=== PATIENT | male | born 1945 | race Caucasian/White ===

== ENCOUNTER → 2016-04-29 | Outpatient (CLI) | payer MEDICARE | LOC: OD 12:13 | PROVIDERS: ATTEND Internal Medicine | DX: E03.9 Hypothyroidism, unspecified (principal) | CPT/HCPCS: 36415; 84443 ==

== ENCOUNTER → 2016-08-12 | Outpatient (CLI) | payer MEDICARE ==
[~2016-08-12] MED LIST: IRON SUCROSE COMPLEX 200 MG in NORMAL SALINE 100 ML IV PRN
== END ==
LOC: II 12:29
PROVIDERS: ATTEND Internal Medicine
PROC: 3E033GC Introduction of Other Therapeutic Substance into Peripheral Vein, Percutaneous Approach (ICD-10-PCS; principal; 2016-08-12)
DX: D50.9 Iron deficiency anemia, unspecified (principal); K90.9 Intestinal malabsorption, unspecified; D64.9 Anemia, unspecified
CPT/HCPCS: 96374; J1756

== ENCOUNTER 2016-08-19 12:26 | Outpatient (CLI) | payer MEDICARE ==
[2016-08-19 13:20] VITALS: BP 133/70
== END 2016-08-19 13:30 | disposition home or self-care (01) ==
LOC: II 12:26 → 5TH 12:30 → II 13:30
PROVIDERS: ATTEND Internal Medicine
PROC: 3E033GC Introduction of Other Therapeutic Substance into Peripheral Vein, Percutaneous Approach (ICD-10-PCS; principal; 2016-08-19)
DX: D50.9 Iron deficiency anemia, unspecified (principal); K90.9 Intestinal malabsorption, unspecified
CPT/HCPCS: 96365; J1756

== ENCOUNTER 2016-08-24 19:42 | Observation (INO) | payer MEDICARE ==
[2016-08-24] MEDS ORDERED: NORMAL SALINE 1000 ML 1,000 ML IV PRN (20:19)
[2016-08-24] MEDS ORDERED: DIPHENHYDRAMINE HCL 50 MG/ML VIAL IV PRN (20:27)
[2016-08-24] MEDS ORDERED: ACETAMINOPHEN 325 MG TABLET PO PRN (20:27)
[2016-08-25] MEDS ORDERED: LISINOPRIL 5 MG TABLET PO ONE (02:00)
[2016-08-25] MEDS ORDERED: AMLODIPINE BESYLATE 5 MG TABLET PO ONE (02:00)
[2016-08-25] MEDS ORDERED: LISINOPRIL 5 MG TABLET ONE (02:27)
[2016-08-25 06:30] LABS: HEMATOCRIT 30.6 % (37.9-51.0); HEMOGLOBIN 9.7 g/dL (13.5-17.0); HGB HCT DIFFERENCE -1.5; MEAN CORPUSCULAR HEMOGLOBIN 26.9 pg (27.0-33.4); MEAN CORPUSCULAR HGB CONC 31.6 g/dL (32.0-36.0); MEAN CORPUSCULAR VOLUME 85 fl (80-97); RED CELL DISTRIBUTION WIDTH 20.7 % (11.5-14.0); WHITE BLOOD COUNT 5.1 10^3/uL (4.0-10.5)
[2016-08-25] MEDS ORDERED: NA PHOS,M-B/NA PHOS,DI-BA (ADULT) 133 ML ENEMA PR ONE (09:00)
[2016-08-25] MEDS ORDERED: GLYCOPYRROLATE INJ 0.4 MG/2 ML VIAL ONE (09:15)
[2016-08-25] MEDS ORDERED: ONDANSETRON HCL INJ/PF 4 MG/2 ML SDV ONE (09:15)
[2016-08-25] MEDS ORDERED: NALOXONE HCL INJ/PF 0.4 MG/1 ML SDV ONE (09:15)
[2016-08-25] MEDS ORDERED: LIDOCAINE 2% JELLY 30 ML TUBE ONE (09:15)
[2016-08-25] MEDS ORDERED: FENTANYL CITRATE INJ/PF 100 MCG/2 ML AMPUL ONE (09:16)
[2016-08-25] MEDS ORDERED: GLUCAGON,HUMAN RECOMB 1 MG INJ ONE (09:16)
[2016-08-25] MEDS ORDERED: FLUMAZENIL INJ 0.5 MG/5 ML VIAL IV ONE (09:16)
[2016-08-25] MEDS ORDERED: EPINEPHRINE INJ 1 MG/10 ML DISP.SYRIN ONE (09:16)
[2016-08-25] MEDS: MIDAZOLAM 2 MG/2 ML INJ ONE ×2 (10:15→10:23)
--- NOTE | 2016-08-25 11:23 | OPERATIVE REPORT E ---
Operative Report NAME: SUKUMAR ARMENDARIZ : 1945 AGE: 70Y DATE OF SURGERY: 08/24/2016 ROOM: 208 PREOPERATIVE DIAGNOSIS: The patient is a 70-year-old male with anemia. POSTOPERATIVE DIAGNOSES: 1. Anemia. 2. Abdominal pain. 3. Diverticulosis, sigmoid, descending colon. OPERATION: Colonoscopy. SURGEON: DEVYN PETTY M.D. ANESTHESIA: Versed 2, fentanyl 50. TISSUE REMOVED OR ALTERED: None. PROCEDURE: RECTAL EXAM: Normal sigmoid, descending colon, diverticulosis. Large amount of brown solid stool. Transverse colon, again, normal. No polyps, no active bleeding. Ascending colon shows large amount of solid brown stool. Cecum dilated. There is no active bleeding. No polyps, no malignancy. Scope withdrawn from cecum, ascending, transverse, descending, sigmoid, all the way to the rectum. CONCLUSION: 1. Diverticulosis. 2. Inadequate prep. 3. No active bleeding. PLAN: 1. Patient to be discharged. 2. Soft, low-residual diet. 3. Consideration for outpatient elective upper endoscopy. DICTATING PHYSICIAN: DEVYN PETTY M.D. [id number] PHY#: [id number] ID: [id number] JOB#: [id number] ACCT: [id number] cc:Kadie NELSON M.D. >
[2016-08-25 12:01] VITALS: BP 127/77
[2016-08-25 13:33] LABS: ABSOLUTE BASOPHILS # (AUTO) 0.1 10^3/uL (0.0-0.2); ABSOLUTE EOSINOPHILS # (AUTO) 0.6 10^3/uL (0.0-0.6); ABSOLUTE LYMPHOCYTES (AUTO) 1.4 10^3/uL (0.5-4.7); ABSOLUTE MONOCYTES (AUTO) 0.4 10^3/uL (0.1-1.4); ABSOLUTE NEUT (AUTO) 4.7 10^3/uL (1.7-8.2); BASOPHILS % (AUTO) 1.8 % (0-2); EOSINOPHILS % (AUTO) 8.1 % (0-6); HEMATOCRIT 29.9 % (37.9-51.0); HEMOGLOBIN 9.7 g/dL (13.5-17.0); HGB HCT DIFFERENCE -0.8; LYMPHOCYTES % (AUTO) 19.7 % (13-45); MEAN CORPUSCULAR HEMOGLOBIN 27.3 pg (27.0-33.4); MEAN CORPUSCULAR HGB CONC 32.5 g/dL (32.0-36.0); MEAN CORPUSCULAR VOLUME 84 fl (80-97); MONOCYTES % (AUTO) 5.1 % (3-13); RED BLOOD COUNT 3.56 10^6/uL (4.35-5.55); RED CELL DISTRIBUTION WIDTH 21.1 % (11.5-14.0); SEGMENTED NEUTROPHILS % (AUTO) 65.3 % (42-78); WHITE BLOOD COUNT 7.2 10^3/uL (4.0-10.5)
[2016-08-25 14:03] LABS: IRON 28.5 ug/dL (49-181)
[2016-08-25 14:22] LABS: FERRITIN 76.2 ng/mL (17.9-464.0)
--- NOTE | 2016-08-27 07:23 | DISCHARGE SUMMARY E ---
Discharge Summary NAME: SUKUMAR ARMENDARIZ : 1945 AGE: 70Y ADMITTED: 08/24/2016 DISCHARGED: 08/25/2016 HOSPITAL COURSE: The patient is 70 years old and underwent observation admission for anemia. His hemoglobin was 8. He was transfused 1 unit of packed cells overnight and now his hemoglobin is 9.5. He underwent colonoscopy today which was completed, but the patient has a large amount of brown solid stool. We did reach the cecum but I did not see any polyps or active bleeding. DISCHARGE PLAN: 1. The patient will see us as an outpatient and consider upper endoscopy elective. 2. The patient to have another H and H prior to discharge. 1. Soft low residue. 3. Start on full liquid diet. 4. We will see him as an outpatient for further treatment and evaluation. DICTATING PHYSICIAN: DEVYN PETTY M.D. [id number] PHY#: [id number] ID: [id number] JOB#: [id number] ACCT: [id number] cc:ACE YORK M.D., MAHMOUD M.D. >
== END 2016-08-25 14:00 | disposition home or self-care (01) ==
LOC: 2N 19:42
PROVIDERS: ADMIT Specialist; ATTEND Specialist
PROC: 0DJD8ZZ Inspection of Lower Intestinal Tract, Via Natural or Artificial Opening Endoscopic (ICD-10-PCS; principal; 2016-08-24)
PROC: 30243N1 Transfusion of Nonautologous Red Blood Cells into Central Vein, Percutaneous Approach (ICD-10-PCS; 2016-08-24)
DX: D50.9 Iron deficiency anemia, unspecified (principal); K57.30 Diverticulosis of large intestine without perforation or abscess without bleeding; R10.9 Unspecified abdominal pain; G20 Parkinson's disease; K21.9 Gastro-esophageal reflux disease without esophagitis; Z79.899 Other long term (current) drug therapy; Z98.890 Other specified postprocedural states; Z86.010 Personal history of colon polyps; Z87.19 Personal history of other diseases of the digestive system
CPT/HCPCS: 45378; 86900; 86901; 36415 ×2; 36430; 86850; 82607; 82728; 83540; 85025 ×2; 85027; 86920; G0378 ×2; G0379; P9016; A9270 ×3; J2250; J1200; J3010; J1610; J2405; J7030; J0171; J2310; J3490

== ENCOUNTER → 2016-08-24 | Outpatient (CLI) | payer MEDICARE ==
[2016-08-24 10:11] LABS: ABSOLUTE BASOPHILS # (AUTO) 0.2 10^3/uL (0.0-0.2); ABSOLUTE EOSINOPHILS # (AUTO) 0.7 10^3/uL (0.0-0.6); ABSOLUTE MONOCYTES (AUTO) 0.4 10^3/uL (0.1-1.4); ABSOLUTE NEUT (AUTO) 2.2 10^3/uL (1.7-8.2); EOSINOPHILS % (AUTO) 12.4 % (0-6); HEMATOCRIT 25.6 % (37.9-51.0); HGB HCT DIFFERENCE -1.6; LYMPHOCYTES % (AUTO) 36.7 % (13-45); MEAN CORPUSCULAR HEMOGLOBIN 26.3 pg (27.0-33.4); MEAN CORPUSCULAR HGB CONC 31.4 g/dL (32.0-36.0); MEAN CORPUSCULAR VOLUME 84 fl (80-97); RED BLOOD COUNT 3.05 10^6/uL (4.35-5.55); RED CELL DISTRIBUTION WIDTH 21.8 % (11.5-14.0); SEGMENTED NEUTROPHILS % (AUTO) 39.9 % (42-78); WHITE BLOOD COUNT 5.4 10^3/uL (4.0-10.5)
== END ==
LOC: OD 09:21
PROVIDERS: ATTEND Specialist
DX: R10.9 Unspecified abdominal pain (principal); D50.9 Iron deficiency anemia, unspecified
CPT/HCPCS: 36415; 85025

== ENCOUNTER 2016-08-26 13:02 | Outpatient (CLI) | payer MEDICARE ==
[2016-08-26 14:24] VITALS: BP 151/87
== END 2016-08-26 15:12 | disposition home or self-care (01) ==
LOC: II 13:02 → 5TH 13:05 → II 15:12
PROVIDERS: ATTEND Internal Medicine
PROC: 3E033GC Introduction of Other Therapeutic Substance into Peripheral Vein, Percutaneous Approach (ICD-10-PCS; principal; 2016-08-26)
DX: D50.9 Iron deficiency anemia, unspecified (principal); K90.9 Intestinal malabsorption, unspecified
CPT/HCPCS: 96367; J1756; 96374

== ENCOUNTER 2016-09-02 13:04 | Outpatient (CLI) | payer MEDICARE ==
[2016-09-02 15:11] VITALS: BP 119/58
== END 2016-09-02 15:38 | disposition home or self-care (01) ==
LOC: II 13:04 → 5TH 13:07 → II 15:38
PROVIDERS: ATTEND Internal Medicine
PROC: 3E033GC Introduction of Other Therapeutic Substance into Peripheral Vein, Percutaneous Approach (ICD-10-PCS; principal; 2016-09-02)
DX: D50.9 Iron deficiency anemia, unspecified (principal); K90.9 Intestinal malabsorption, unspecified
CPT/HCPCS: 96365; J1756; 96367

== ENCOUNTER 2017-01-29 13:29 | Inpatient (IN) | payer MEDICARE, OTHER ==
[2017-01-29] MEDS ORDERED: AMPICILLIN SOD/SULBACTAM 3 GM VIAL IV ONE (13:55)
--- NOTE | 2017-01-29 13:58 | ER Document Report ---
ED General - General Chief Complaint: Altered Mental Status Stated Complaint: FEVER SWEATING CONFUSION Time Seen by Provider: 01/29/17 13:44 Mode of Arrival: Wheelchair Information source: Relative Cannot obtain history due to: Altered mental status Notes: 71 yr old male on multiple pain medications presents with concerns of altered mental status by . notes patient has been couhg, noted to satting 88% on RA upon arrival. Pt has been jittery shaking TRAVEL OUTSIDE OF THE [place] IN LAST 30 DAYS: No - HPI Onset: Yesterday Onset/Duration: Sudden Quality of pain: No pain Severity: Moderate Pain Level: Denies Associated symptoms: Nonproductive cough, Fever, Other Exacerbated by: Denies Relieved by: Denies Similar symptoms previously: Yes - previous aspiration Recently seen / treated by doctor: No - Related Data Allergies/Adverse Reactions: tramadol [Tramadol] Adverse Reaction (Intermediate, Verified 01/29/17 13:34) Generalized rash pregabalin [From Lyrica] Adverse Reaction (Verified 01/29/17 13:34) RASH Home Medications: Current Home Medications Amlodipine Besylate [Norvasc 5 mg Tablet] 5 mg PO DAILY 01/29/17 [History] Duloxetine HCl [Cymbalta 20 Mg Capsule.Dr] 60 mg PO Q12 01/29/17 [History] Gabapentin [Neurontin 300 mg Capsule] 300 mg PO Q8 01/29/17 [History] Lisinopril [Prinivil 5 mg Tablet] 5 mg PO DAILY 01/29/17 [History] Morphine Sulfate [Morphine Sulfate ER] 30 mg PO Q8 01/29/17 [History] Oxycodone HCl 20 mg PO Q4H 01/29/17 [History] Tamsulosin HCl [Flomax 0.4 mg Cap.sr] 0.4 mg PO DAILY 01/29/17 [History] Trazodone HCl [Desyrel] 100 mg PO QHS PRN 01/29/17 [History] Past Medical History - Social History Smoking Status: Current Every Day Smoker Cigarette use (# per day): Yes Chew tobacco use (# tins/day): No Smoking Education Provided: No Family History: Reviewed & Not Pertinent - Past Medical History Cardiac Medical History: Reports: Hx Hypertension Denies: Hx Coronary Artery Disease, Hx Heart Attack Pulmonary Medical History: Reports: Hx COPD, Hx Pneumonia Denies: Hx Asthma, Hx Bronchitis Neurological Medical History: Denies: Hx Cerebrovascular Accident, Hx Seizures Renal/ Medical History: Reports: Hx Renal Insufficiency GI Medical History: Reports: Hx Gastroesophageal Reflux Disease, Hx Hiatal Hernia - REPAIR. Denies: Hx Hepatitis, Hx Ulcer Musculoskeltal Medical History: Reports Hx Arthritis, Reports Hx Fibromyalgia Psychiatric Medical History: Reports: Hx Depression, Hx Post Traumatic Stress Disorder Infectious Medical History: Denies: Hx Hepatitis Past Surgical History: Denies: Hx Open Heart Surgery, Hx Pacemaker - Immunizations Hx Diphtheria, Pertussis, Tetanus Vaccination: Yes Hx Pneumococcal Vaccination: 02/28/15 Review of Systems - Review of Systems Notes: PHYSICAL EXAMINATION: GENERAL: Ill-appearing male somnolent HEAD: Atraumatic, normocephalic. EYES: Pupils equal round and reactive to light, extraocular movements intact, sclera anicteric, conjunctiva are normal. ENT: Nares patent, oropharynx clear without exudates. Moist mucous membranes. NECK: Normal range of motion, supple without lymphadenopathy LUNGS: Coarse rhonchi inspiratory and expiratory HEART: Tachycardic ABDOMEN: Soft, nontender, nondistended abdomen. No guarding, no rebound. No masses appreciated. Musculoskeletal: Normal range of motion, no pitting or edema. No cyanosis. NEUROLOGICAL: Alert to person PSYCH: Normal mood, normal affect. SKIN: Warm, Dry, normal turgor, no rashes or lesions noted. -: Yes ROS unobtainable due to patient's medical condition Physical Exam - Vital signs Vitals: BP 116/63 01/29/17 13:55 Course - Re-evaluation Re-evalutation: 01/29/17 16:23 Patient's presenting concern was for altered mental status with rectal temp noting a fever of 100.4, patient was immediately started on Unasyn given history of aspiration pneumonia. Chest x-ray however was concerning for free air under the diaphragm for patient was immediately sent for CT, CT finding did note significant urinary retention as well as large bowels which gave the impression of free air. Surgeon had been immediately asked to evaluate the patient and was planning to take the patient for a exploratory laparotomy however we will hold on this at this time. Patient has received IV antibiotics fluids. Merrill placement does note over 2 liters of urinary output. - Vital Signs Vital signs: Temp Pulse Resp BP Pulse Ox 100.4 F 20 147/58 H 95 12/02/17 14:06 01/29/17 15:20 01/29/17 15:20 01/29/17 15:02 - Laboratory Result Diagrams: 01/29/17 13:53 01/29/17 13:53 Laboratory results interpreted by me: 01/29/17 01/29/17 01/29/17 13:53 13:53 13:53 WBC 17.6 H RBC 3.51 L Hgb 11.5 L Hct 34.3 L MCV 98 H RDW 15.6 H Seg Neutrophils % 87.7 H Lymphocytes % 5.5 L Absolute Neutrophils 15.5 H VBG pH 7.28 L VBG HCO3 18.6 L Carbon Dioxide 17 L BUN 47 H Creatinine 3.41 H Est GFR ( Amer) 22 L Est GFR (Non-Af Amer) 18 L Direct Bilirubin 0.6 H AST 82 H NT-Pro-B Natriuret Pep 01/29/17 13:53 WBC RBC Hgb Hct MCV RDW Seg Neutrophils % Lymphocytes % Absolute Neutrophils VBG pH VBG HCO3 Carbon Dioxide BUN Creatinine Est GFR ( Amer) Est GFR (Non-Af Amer) Direct Bilirubin AST NT-Pro-B Natriuret Pep 1220 H - Diagnostic Test Radiology reviewed: Image reviewed, Reports reviewed Critical Care Note - Critical Care Note Total time excluding time spent on procedures (mins): 58 Comments: 58 minutes of critical care time spent in direct contact evaluating and reevaluating the patient, treating symptoms, reviewing labs and studies and speaking with family and consultants excluding any procedures Discharge - Discharge Clinical Impression: Urinary retention Altered mental status Qualifiers: Altered mental status type: unspecified Qualified Code(s): R41.82 - Altered mental status, unspecified Sepsis Qualifiers: Sepsis type: sepsis due to unspecified organism Qualified Code(s): A41.9 - Sepsis, unspecified organism Condition: Fair Disposition: ADMITTED INPATIENT [facility] Unit Admitted: [facility]
[2017-01-29] MEDS: NORMAL SALINE 1000 ML 1,000 ML IV PRN ×2 (14:00→15:01)
[2017-01-29] MEDS ORDERED: ACETAMINOPHEN 325 MG TABLET PO ONE (14:03)
[2017-01-29 14:20] LABS: ABSOLUTE BASOPHILS # (AUTO) 0.2 10^3/uL (0.0-0.2); ABSOLUTE EOSINOPHILS # (AUTO) 0.4 10^3/uL (0.0-0.6); ABSOLUTE MONOCYTES (AUTO) 0.6 10^3/uL (0.1-1.4); ABSOLUTE NEUT (AUTO) 15.5 10^3/uL (1.7-8.2); BASOPHILS % (AUTO) 0.9 % (0-2); EOSINOPHILS % (AUTO) 2.2 % (0-6); HEMATOCRIT 34.3 % (37.9-51.0); HEMOGLOBIN 11.5 g/dL (13.5-17.0); HGB HCT DIFFERENCE 0.2; LYMPHOCYTES % (AUTO) 5.5 % (13-45); MEAN CORPUSCULAR HEMOGLOBIN 32.8 pg (27.0-33.4); MEAN CORPUSCULAR HGB CONC 33.6 g/dL (32.0-36.0); MEAN CORPUSCULAR VOLUME 98 fl (80-97); MONOCYTES % (AUTO) 3.7 % (3-13); RED BLOOD COUNT 3.51 10^6/uL (4.35-5.55); RED CELL DISTRIBUTION WIDTH 15.6 % (11.5-14.0); SEGMENTED NEUTROPHILS % (AUTO) 87.7 % (42-78); VENOUS BLOOD BASE EXCESS -7.7 mmol/L; VENOUS BLOOD HCO3 18.6 mmol/L (20-32); VENOUS BLOOD PH 7.28 (7.30-7.42); WHITE BLOOD COUNT 17.6 10^3/uL (4.0-10.5)
--- NOTE | 2017-01-29 14:24 | RADIOLOGY REPORT (SQ) ---
EXAM DESCRIPTION: CT HEAD WITHOUT COMPLETED DATE/TIME: 01/29/2017 2:12 pm REASON FOR STUDY: altered COMPARISON: None. TECHNIQUE: Axial images acquired through the brain without intravenous contrast. Images reviewed wi th bone, brain and subdural windows. Images stored on PACS. All CT scanners at this facility use dose modulation, iterative reconstruction, and/or weight based d osing when appropriate to reduce radiation dose to as low as reasonably achievable (ALARA). [facility]: Dose Right [facility]: CareDose [facility]: Dose Right [facility]: Teradose 4D [facility]: [employer] RADIATION DOSE: 131 mGy. LIMITATIONS: Motion artifact, patient scanned twice FINDINGS: VENTRICLES: Normal size and contour. CEREBRUM: No masses. No hemorrhage. No midline shift. No evidence for acute infarction. Normal gra y/white matter differentiation. No areas of low density in the white matter. CEREBELLUM: No masses. No hemorrhage. No alteration of density. No evidence for acute infarction. EXTRAAXIAL SPACES: No fluid collections. No masses. ORBITS AND GLOBE: No intra- or extraconal masses. Normal contour of globe without masses. CALVARIUM: No fracture. PARANASAL SINUSES: Bilateral endoscopic sinus surgery along the ethmoid air cells and maxillary sinus outlets. There is mucous membrane thickening and trace fluid in the left frontal sinus and bilatera l sphenoid sinuses. There are opacified right frontal and bilateral anterior ethmoid air cells. SOFT TISSUES: No mass or hematoma. OTHER: No other significant finding. IMPRESSION: Acute on chronic sinus disease No acute intracranial changes EVIDENCE OF ACUTE STROKE: NO. COMMENT: Quality ID # [id number]: Final reports with documentation of one or more dose reduction techniques (e.g., Automated exposure control, adjustment of the mA and/or kV according to patient size, use of iterative reconstruction technique) TECHNICAL DOCUMENTATION: JOB ID: [id number] [employer]- All Rights Reserved
[2017-01-29 14:25] LABS: PROTHROMBIN TIME 14.2 SEC (11.4-15.4)
--- NOTE | 2017-01-29 14:28 | RADIOLOGY REPORT (SQ) ---
EXAM DESCRIPTION: CHEST SINGLE VIEW COMPLETED DATE/TIME: 01/29/2017 2:17 pm REASON FOR STUDY: cough, altered COMPARISON: Two-view chest 11/16/2010, 02/13/2009 EXAM PARAMETERS: NUMBER OF VIEWS: One view. TECHNIQUE: Single frontal radiographic view of the chest acquired. RADIATION DOSE: NA LIMITATIONS: Portable film FINDINGS: There is subdiaphragmatic free air. This report was called to Dr. Ac 1420 hours, 01/29/2017. LUNGS AND PLEURA: Low lung volumes. Diffuse bilateral airspace disease worrisome for pulmonary edema . MEDIASTINUM AND HILAR STRUCTURES: No masses. Contour normal. HEART AND VASCULAR STRUCTURES: Mild cardiomegaly. BONES: No acute findings. HARDWARE: None in the chest. OTHER: No other significant finding. IMPRESSION: Diffuse bilateral infiltrates worrisome for pulmonary edema. Subdiaphragmatic free air. COMMENT: Pertinent findings on the imaging study reported as a CRITICAL RESULT to CICI ERNANDEZ DO at14:20 on 01/29/2017. Category of Critical Result: Free intraperitoneal air TECHNICAL DOCUMENTATION: JOB ID: [id number] [employer]- All Rights Reserved
[2017-01-29] MEDS ORDERED: PIPERACILLIN/TAZOBACTAM 3.375 GM VIAL IV ONE (14:34)
[2017-01-29 14:40] LABS: ALANINE AMINOTRANSFERASE 49 U/L (21-72); ALBUMIN 3.5 g/dL (3.5-5.0); ALKALINE PHOSPHATASE 100 U/L (38-126); ANION GAP 16 (5-19); ASPARTATE AMINO TRANSFERASE 82 U/L (17-59); BILIRUBIN,DIRECT 0.6 mg/dL (0.0-0.4); BILIRUBIN,TOTAL 0.6 mg/dL (0.2-1.3); BLOOD UREA NITROGEN 47 mg/dL (7-20); CALCIUM 8.8 mg/dL (8.4-10.2); CARBON DIOXIDE 17 mmol/L (22-30); CHLORIDE 105 mmol/L (98-107); CREATININE RESULT 3.41 mg/dL (0.52-1.25); GLUCOSE 75 mg/dL (75-110); POTASSIUM 4.2 mmol/L (3.6-5.0); SODIUM 137.6 mmol/L (137-145); TOTAL PROTEIN 6.5 g/dL (6.3-8.2)
[2017-01-29] MEDS ORDERED: ACETAMINOPHEN 650 MG SUPP.RECT PR ONE (14:54)
--- NOTE | 2017-01-29 15:33 | RADIOLOGY REPORT (SQ) ---
EXAM DESCRIPTION: CT ABD/PELVIS WITH IV ONLY COMPLETED DATE/TIME: 01/29/2017 2:49 pm REASON FOR STUDY: free air? fever COMPARISON: Chest films same date TECHNIQUE: CT scan of the abdomen and pelvis performed using helical scanning technique with dynamic intravenous contrast injection. No oral contrast. Images reviewed with lung, soft tissue, and bone windows. Reconstructed coronal and sagittal MPR images reviewed. Delayed images for evaluation of the urinary system also acquired. All images stored on PACS. All CT scanners at this facility use dose modulation, iterative reconstruction, and/or weight based d osing when appropriate to reduce radiation dose to as low as reasonably achievable (ALARA). [facility]: Dose Right [facility]: CareDose [facility]: Dose Right [facility]: Teradose 4D [facility]: [id number] CONTRAST TYPE AND DOSE: contrast/concentration: Isovue mg/ml; Total Contrast Delivered: 80.0 ml; To mercedes Saline Delivered: 68.0 ml RENAL FUNCTION: Deferred by the emergency room attending physician RADIATION DOSE: 15 mGy. LIMITATIONS: None. FINDINGS: LOWER CHEST: Diffuse alveolar and interstitial infiltrates, question pulmonary edema. No pleural effusion. Large retrocardiac hiatal hernia. LIVER: Normal size. No masses. No dilated ducts. SPLEEN: Normal size. No focal lesions. PANCREAS: No masses. No significant calcifications. No adjacent inflammation or peripancreatic fluid collections. Pancreatic duct not dilated. GALLBLADDER: No identified stones by CT criteria. No inflammatory changes to suggest cholecystitis. ADRENAL GLANDS: No significant masses or asymmetry. RIGHT KIDNEY AND URETER: No solid masses. No significant calcifications. No hydronephrosis or hyd roureter. LEFT KIDNEY AND URETER: No solid masses. No significant calcifications. No hydronephrosis or hydr oureter. AORTA AND VESSELS: No aneurysm. No dissection. Renal arteries, SMA, celiac without stenosis. RETROPERITONEUM: No retroperitoneal adenopathy, hemorrhage or masses. BOWEL AND PERITONEAL CAVITY: There is diffuse gaseous distension of colon and small bowel in a nonspe cific nonobstructive pattern, question ileus. Gaseous distension of the transverse colon under the h emidiaphragms mimics the appearance of free air on the chest films earlier today. This finding was d iscussed with Dr. Ac. APPENDIX: Not identified PELVIS: Massive distention of the urinary bladder. Small prostate post TUR. No free pelvic fluid or adenopathy. ABDOMINAL WALL: No masses. No hernias. BONES: No significant or acute findings. OTHER: No other significant finding. IMPRESSION: Nonspecific bowel pattern with gaseous distension of colon and small bowel, question ile us Masses urinary bladder distention Large retrocardiac hiatal hernia Alveolar in its distal infiltrates worrisome for ARDS is or pulmonary edema alveolar and interstitial infiltrates worrisome for pulmonary edema TECHNICAL DOCUMENTATION: JOB ID: [id number] Quality ID # [id number]: Final reports with documentation of one or more dose reduction techniques (e.g., Au tomated exposure control, adjustment of the mA and/or kV according to patient size, use of iterative reconstruction technique) 2010 [employer]- All Rights Reserved
[2017-01-29 16:02] LABS: APPEARANCE,URINE SLIGHTLY-CLOUDY; BILIRUBIN,URINE NEGATIVE (NEGATIVE); GLUCOSE, URINE NEGATIVE (NEGATIVE); KETONES,URINE 20 mg/dL (NEGATIVE); LEUKOCYTE ESTERASE,URINE NEGATIVE (NEGATIVE); NITRITE,URINE NEGATIVE (NEGATIVE); PROTEIN,URINE 30 mg/dL (NEGATIVE); URINE SPECIFIC GRAVITY 1.033; UROBILINOGEN,URINE NEGATIVE mg/dL (<2.0)
[2017-01-29 16:11] LABS: BACTERIA,URINE TRACE /HPF; RBC,URINE 0-1 /HPF
[2017-01-29] MEDS ORDERED: NORMAL SALINE 1000 ML 1,000 ML IV PRN (16:51)
--- NOTE | 2017-01-29 17:23 | RADIOLOGY REPORT (SQ) ---
EXAM DESCRIPTION: KUB/ABDOMEN (SINGLE VIEW) COMPLETED DATE/TIME: 01/29/2017 4:40 pm REASON FOR STUDY: post g tube placement COMPARISON: CT 01/29/2017 NUMBER OF VIEWS: One view. TECHNIQUE: Supine radiographic image of the abdomen acquired. LIMITATIONS: None. FINDINGS: BOWEL GAS PATTERN: Partially imaged bowel again demonstrating multiple gas-filled loops. No pneumoperitoneum evident. CALCIFICATIONS: No suspicious calcifications. SOFT TISSUES: No gross mass or suggestion of organomegaly. HARDWARE: An apparent enteric tube is seen with the tip and proximal port projecting in the region of the mid thoracic esophagus. BONES: No acute fracture. No worrisome bone lesions. OTHER: Re- demonstration of multifocal interstitial opacities throughout the lungs. IMPRESSION: 1. Enteric tube tip and proximal port project in the region of the mid thoracic esophag us. Recommend advancing at least 15 cm prior to use. 2. Re- demonstration of gaseous distension of the bowel as seen on CT imaging performed earlier this date. 3. Re- demonstration of multifocal interstitial pulmonary opacities throughout the lungs as seen on CT imaging performed earlier this date. TECHNICAL DOCUMENTATION: JOB ID: [id number] [employer]- All Rights Reserved
--- NOTE | 2017-01-29 17:45 | RADIOLOGY REPORT (SQ) ---
EXAM DESCRIPTION: KUB/ABDOMEN (SINGLE VIEW) COMPLETED DATE/TIME: 01/29/2017 4:40 pm REASON FOR STUDY: replaced g tube placement COMPARISON: CT abdomen and pelvis 01/29/2017 NUMBER OF VIEWS: One view. TECHNIQUE: Supine radiographic image of the abdomen acquired. LIMITATIONS: None. FINDINGS: BOWEL GAS PATTERN: Partially imaged bowel again demonstrating multiple gas distended loops . Pneumoperitoneum. CALCIFICATIONS: No suspicious calcifications. SOFT TISSUES: No gross mass or suggestion of organomegaly. HARDWARE: The previously described enteric tube has been advanced with the tip now projecting just cr anial to the gastroesophageal junction. BONES: No acute fracture. No worrisome bone lesions. OTHER: Re- demonstration of multifocal interstitial pulmonary opacities. IMPRESSION: 1. Enteric tube tip and proximal port now project within the distal thoracic esophagus. Recommend advancing at least 10 cm prior to use. 2. Stable pulmonary and bowel findings. TECHNICAL DOCUMENTATION: JOB ID: [id number] [employer]- All Rights Reserved
--- NOTE | 2017-01-29 17:58 | PDOC CONSULTATION ---
Consultation Consult Date: 01/29/17 Consult reason:: Change in mental status, agitation, and abdominal pain. History of Present Illness Admission Date/PCP: 01/29/17 15:17 CESAR PAULA PA-C History of Present Illness: SUKUMAR ARMENDARIZ is a 71 year old male Who was noted by his , To undergo a change in mental status, increased agitation and tremulousness, with abdominal pain. When seen in the emergency room, Patient was noted to have a mildly, diffusely tender, abdomen, with hypoactive bowel sounds. CT scan of the abdomen revealed markedly dilated bowel loops and a markedly distended bladder.A nasogastric tube, and a Merrill catheter was placed and surgical consultation has been requested. Past Medical History Cardiac Medical History: Reports: Hypertension Denies: Coronary Artery Disease, Myocardial Infarction Pulmonary Medical History: Reports: Chronic Obstructive Pulmonary Disease (COPD) , Pneumonia Denies: Asthma, Bronchitis Neurological Medical History: Denies: Seizures GI Medical History: Reports: Gastroesophageal Reflux Disease, Hiatal Hernia - REPAIR Denies: Hepatitis Musculoskeltal Medical History: Reports: Arthritis, Fibromyalgia Psychiatric Medical History: Reports: Depression, Post Traumatic Stress Disorder Hematology: Reports: Anemia Denies: Sickle Cell Disease Past Surgical History Past Surgical History: Denies: Pacemaker Social History Smoking Status: Current Every Day Smoker - Advance Directive Resuscitation Status: Full Code Family History Family History: Reviewed & Not Pertinent Parental Family History Reviewed: No Children Family History Reviewed: No Sibling(s) Family History Reviewed.: No Medication/Allergy Home Medications: Amlodipine Besylate [Norvasc 5 mg Tablet] 5 mg PO DAILY 01/29/17 Duloxetine HCl [Cymbalta 20 Mg Capsule.Dr] 60 mg PO Q12 01/29/17 Gabapentin [Neurontin 300 mg Capsule] 300 mg PO Q8 01/29/17 Lisinopril [Prinivil 5 mg Tablet] 5 mg PO DAILY 01/29/17 Morphine Sulfate [Morphine Sulfate ER] 30 mg PO Q8 01/29/17 Oxycodone HCl 20 mg PO Q4H 01/29/17 Tamsulosin HCl [Flomax 0.4 mg Cap.sr] 0.4 mg PO DAILY 01/29/17 Trazodone HCl [Desyrel] 100 mg PO QHS PRN 01/29/17 Allergies/Adverse Reactions: tramadol [Tramadol] Adverse Reaction (Intermediate, Verified 01/29/17 13:34) Generalized rash pregabalin [From Lyrica] Adverse Reaction (Verified 01/29/17 13:34) RASH Physical Exam Vital Signs: Temp Pulse Resp BP Pulse Ox 100.4 F 10 L 121/67 95 01/29/17 14:06 01/29/17 17:02 01/29/17 17:02 01/29/17 17:02 Intake & Output 01/28/17 01/29/17 01/30/17 06:59 06:59 06:59 Output Total 1500 Balance -1500 General appearance: PRESENT: mild distress, well-developed, well-nourished Head exam: PRESENT: atraumatic, normocephalic Mouth exam: PRESENT: dry mucosa, neck supple Neck exam: PRESENT: full ROM, JVD, tenderness Respiratory exam: PRESENT: clear to auscultation niels, unlabored Cardiovascular exam: PRESENT: RRR GI/Abdominal exam: PRESENT: diminished bowel sounds, soft, tenderness - Diffuse , mild, tenderness throughout abdomen.. ABSENT: guarding, rebound, rigid Rectal exam: PRESENT: deferred Results Laboratory Results: 01/29/17 15:37 Urine Color YELLOW Urine Appearance SLIGHTLY-CLOUDY Urine pH 5.0 Ur Specific [place] 1.033 Urine Protein 30 H Urine Glucose (UA) NEGATIVE Urine Ketones 20 H Urine Blood MODERATE H Urine Nitrite NEGATIVE Ur Leukocyte Esterase NEGATIVE Impressions: Chest X-Ray 01/29/17 13:45 IMPRESSION: Diffuse bilateral infiltrates worrisome for pulmonary edema. Subdiaphragmatic free air. Head CT 01/29/17 13:55 IMPRESSION: Acute on chronic sinus disease No acute intracranial changes EVIDENCE OF ACUTE STROKE: NO. Abdomen/Pelvis CT 01/29/17 14:21 IMPRESSION: Nonspecific bowel pattern with gaseous distension of colon and small bowel, question ileus Masses urinary bladder distention Large retrocardiac hiatal hernia Alveolar in its distal infiltrates worrisome for ARDS is or pulmonary edema alveolar and interstitial infiltrates worrisome for pulmonary edema Assessment & Plan - Plan Summary Plan Summary: Patient will be reevaluated after nasogastric tube placed and Merrill catheter inserted.
--- NOTE | 2017-01-29 18:11 | RADIOLOGY REPORT (SQ) ---
EXAM DESCRIPTION: KUB/ABDOMEN (SINGLE VIEW) COMPLETED DATE/TIME: 01/29/2017 5:25 pm REASON FOR STUDY: replaced g tube again COMPARISON: 01/29/2017 NUMBER OF VIEWS: One view. TECHNIQUE: Supine radiographic image of the abdomen acquired. LIMITATIONS: None. FINDINGS: BOWEL GAS PATTERN: Partially imaged bowel again demonstrating multiple gas distended loops . No pneumoperitoneum. CALCIFICATIONS: No suspicious calcifications. SOFT TISSUES: No gross mass or suggestion of organomegaly. HARDWARE: Enteric tube position remains stable with the tip projecting just cranial to the gastroesop hageal junction. BONES: No acute fracture. No worrisome bone lesions. OTHER: Re- demonstration of multifocal interstitial pulmonary opacities. IMPRESSION: 1. Stable position and appearance of an enteric tube, terminating at the level of the d istal thoracic esophagus. Recommend advancing at least 10 cm prior to use. 2. Stable pulmonary and bowel findings. TECHNICAL DOCUMENTATION: JOB ID: [id number] [employer]- All Rights Reserved
--- NOTE | 2017-01-29 18:16 | RADIOLOGY REPORT (SQ) ---
EXAM DESCRIPTION: KUB/ABDOMEN (SINGLE VIEW) COMPLETED DATE/TIME: 01/29/2017 6:03 pm REASON FOR STUDY: 4th attempt g tube COMPARISON: None. NUMBER OF VIEWS: One view. TECHNIQUE: Supine radiographic image of the abdomen acquired. LIMITATIONS: None. FINDINGS: BOWEL GAS PATTERN: Unchanged, again demonstrating multiple gas distended loops. CALCIFICATIONS: No suspicious calcifications. SOFT TISSUES: No gross mass or suggestion of organomegaly. HARDWARE: Interval advancement of the enteric tube with the tip and proximal port now projecting subd iaphragmatically within the left upper quadrant. BONES: No acute fracture. No worrisome bone lesions. OTHER: Re- demonstration of multifocal interstitial pulmonary opacities. IMPRESSION: 1. Enteric tube tip and proximal port projecting subdiaphragmatically within the left u pper quadrant. 2. Stable bowel and pulmonary findings. TECHNICAL DOCUMENTATION: JOB ID: [id number] [employer]- All Rights Reserved
[2017-01-29] MEDS ORDERED: GLUCAGON,HUMAN RECOMB 1 MG INJ SUBCUT PRN (18:24)
[2017-01-29] MEDS ORDERED: DEXTROSE 40% GEL 15 GM TUBE PO PRN ×2 (18:24)
[2017-01-29] MEDS ORDERED: DEXTROSE 50%-WATER 25 GM/50 ML DISP.SYRIN IV PRN ×2 (18:24)
[2017-01-29] MEDS ORDERED: INFLUENZA ADLT QUAD (36MOS+) 2017-18 VAC 0.5 ML SYR IM PRN (18:55)
[2017-01-29] MEDS: LEVOFLOXACIN 500 MG/D5W RTU 500 MG/100 ML RTUPB IV SCH (22:06)
[2017-01-29] MEDS: HEPARIN SOD (PORCINE) 5,000 UNIT/ML 1 ML SYRINGE SUBCUT SCH (22:11)
[2017-01-30] MEDS ORDERED: PIPERACILLIN/TAZOBACTAM 3.375 GM VIAL IV ONE (05:16)
[2017-01-30] MEDS: PIPERACILLIN SODIUM/TAZOBACTAM 3.375 GM in NORMAL SALINE 100 ML IV SCH ×3 (05:34→17:42)
[2017-01-30 06:54] LABS: MEAN CORPUSCULAR HEMOGLOBIN 32.9 pg (27.0-33.4); MEAN CORPUSCULAR HGB CONC 33.4 g/dL (32.0-36.0); MEAN CORPUSCULAR VOLUME 99 fl (80-97); RED BLOOD COUNT 3.35 10^6/uL (4.35-5.55); RED CELL DISTRIBUTION WIDTH 15.6 % (11.5-14.0); WHITE BLOOD COUNT 15.8 10^3/uL (4.0-10.5)
[2017-01-30] MEDS: HEPARIN SOD (PORCINE) 5,000 UNIT/ML 1 ML SYRINGE SUBCUT SCH ×3 (07:06→23:00)
[2017-01-30 07:23] LABS: ALANINE AMINOTRANSFERASE 46 U/L (21-72); ALBUMIN 3.1 g/dL (3.5-5.0); ALKALINE PHOSPHATASE 102 U/L (38-126); ANION GAP 16 (5-19); ASPARTATE AMINO TRANSFERASE 72 U/L (17-59); BILIRUBIN,DIRECT 0.4 mg/dL (0.0-0.4); BILIRUBIN,TOTAL 0.4 mg/dL (0.2-1.3); CALCIUM 8.7 mg/dL (8.4-10.2); CARBON DIOXIDE 15 mmol/L (22-30); CHLORIDE 112 mmol/L (98-107); CREATININE RESULT 1.18 mg/dL (0.52-1.25); GLUCOSE 99 mg/dL (75-110); SODIUM 142.6 mmol/L (137-145); TOTAL PROTEIN 5.9 g/dL (6.3-8.2)
--- NOTE | 2017-01-30 07:32 | RADIOLOGY REPORT (SQ) ---
EXAM DESCRIPTION: CHEST SINGLE VIEW COMPLETED DATE/TIME: 01/30/2017 7:12 am REASON FOR STUDY: confirm NG tube placement COMPARISON: None. EXAM PARAMETERS: NUMBER OF VIEWS: One view. TECHNIQUE: Single frontal radiographic view of the chest acquired. RADIATION DOSE: NA LIMITATIONS: None. FINDINGS: Lower chest: Small moderate mixed airspace and interstitial opacities partially imaged, s table. HARDWARE: Enteric tube tip at the distal esophagus with coarse and demonstrating current below the he midiaphragms. OTHER: Moderate subdiaphragmatic lucency, stable, consistent with large intra colonic gas and recent CT from 1 day prior. IMPRESSION: Curled enteric tube tip at the distal esophagus; recommend adjustment/replacement. COMMENT: This report was called to Nurse Howard Lewis at07:24 on 01/30/2017. TECHNICAL DOCUMENTATION: JOB ID: [id number] [employer]- All Rights Reserved
[2017-01-30 07:37] LABS: ANISOCYTOSIS SLIGHT; BAND NEUTROPHILS % (MANUAL) 1 % (3-5); BASOPHILS % (MANUAL) 0 % (0-2); EOSINOPHILS % (MANUAL) 0 % (0-6); LYMPHOCYTES % (MANUAL) 3 % (13-45); TOTAL CELLS COUNTED 100
[2017-01-30 08:03] LABS: BLOOD UREA NITROGEN 24 mg/dL (7-20)
--- NOTE | 2017-01-30 09:02 | EKG REPORT ---
SEVERITY:- BORDERLINE ECG - SINUS RHYTHM BORDERLINE T ABNORMALITIES, DIFFUSE LEADS : Confirmed by: Raimundo Shields MD 30-Jan-2017 09:01:01
[2017-01-30 09:18] LABS: APPEARANCE,URINE CLEAR; BILIRUBIN,URINE NEGATIVE (NEGATIVE); GLUCOSE, URINE NEGATIVE (NEGATIVE); KETONES,URINE 80 mg/dL (NEGATIVE); LEUKOCYTE ESTERASE,URINE NEGATIVE (NEGATIVE); NITRITE,URINE NEGATIVE (NEGATIVE); PROTEIN,URINE 100 mg/dL (NEGATIVE); URINE SPECIFIC GRAVITY 1.016; UROBILINOGEN,URINE NEGATIVE mg/dL (<2.0)
--- NOTE | 2017-01-30 11:05 | PDOC H&P ---
History of Present Illness Admission Date/PCP: 01/29/17 15:17 CESAR PAULA PA-C History of Present Illness: Patient is a 71-year-old male he was brought to the emergency room by his spouse for evaluation of altered mental status, there was also associated coughing, on [place]rava in the emergency room the oxygen saturation was 88% on room air, he was also found to be very shaky, tremulousness. The emergency room he was evaluated a chest x-ray was done, the chest x-ray suggests a sub diaphragmatic free air suggesting perforation of a viscus also found was diffuse bilateral airspace disease worrisome for pulmonary edema. Because of these findings on chest x-ray a CAT scan of the abdomen and pelvis with IV contrast was done he showed diffuse alveolar and interstitial infiltrates no pleural effusion also found was a large retrocardiac hiatal hernia there was also diffuse gaseous distention of colon and small bowel in a nonspecific nonobstructive pattern, question ileus. Gaseous distention of the transverse colon under the hemidiaphragm could mimic the appearance of free air. The hemogram showed severe leukocytosis with white blood cell count was 17,000. The CAT scan also showed massively distended urinary bladder the prostate was small is status post TURP. There was fever with temperature of 101. Because of the findings on the CAT scan in the nasogastric tube was inserted and also a Merrill catheter was inserted. Patient also found to have acute kidney injury with serum creatinine of 3.4, BUN 47 the urinalysis was bland. Patient is well- known to me, he had blood work recently in the office on the kidney function was normal so clearly the elevated serum creatinine is acute most likely related to sepsis. Patient have history of chronic pain and is on chronic narcotic regimen with pain specialist. 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 Denies: Sickle Cell Disease Social History Smoking Status: Current Every Day Smoker Cigars Per Day: 1 Last Time Smoked: 2 days ago Frequency of Alcohol Use: None Hx Recreational Drug Use: No Hx Prescription Drug Abuse: No - Advance Directive Resuscitation Status: Full Code Family History Family History: Reviewed & Not Pertinent Parental Family History Reviewed: Yes Children Family History Reviewed: Yes Sibling(s) Family History Reviewed.: Yes Medication/Allergy Home Medications: Amlodipine Besylate [Norvasc 5 mg Tablet] 5 mg PO DAILY 01/29/17 Duloxetine HCl [Cymbalta 20 Mg Capsule.Dr] 60 mg PO Q12 01/29/17 Gabapentin [Neurontin 300 mg Capsule] 300 mg PO Q8 01/29/17 Lisinopril [Prinivil 5 mg Tablet] 5 mg PO DAILY 01/29/17 Morphine Sulfate [Morphine Sulfate ER] 30 mg PO Q8 01/29/17 Oxycodone HCl 20 mg PO Q4H 01/29/17 Tamsulosin HCl [Flomax 0.4 mg Cap.sr] 0.4 mg PO DAILY 01/29/17 Trazodone HCl [Desyrel] 100 mg PO QHS PRN 01/29/17 Allergies/Adverse Reactions: tramadol [Tramadol] Adverse Reaction (Intermediate, Verified 01/29/17 13:34) Generalized rash pregabalin [From Lyrica] Adverse Reaction (Verified 01/29/17 13:34) RASH Review of Systems ROS unobtainable: Due to mental status - It is difficult to obtain review of systems because of his confusion Physical Exam Vital Signs: Temp Pulse Resp BP Pulse Ox 98.3 F 99 20 162/93 H 90 L 01/30/17 07:30 01/30/17 07:30 01/30/17 07:30 01/30/17 07:30 01/30/17 07:30 Intake & Output 01/29/17 01/30/17 01/31/17 06:59 06:59 06:59 Intake Total 1192 Output Total 3550 Balance -2358 Weight 72.5 kg General appearance: PRESENT: mild distress Head exam: PRESENT: atraumatic, normocephalic Eye exam: PRESENT: conjunctiva pink, EOMI, PERRLA Mouth exam: PRESENT: moist, tongue midline Neck exam: PRESENT: full ROM Respiratory exam: PRESENT: crackles Cardiovascular exam: PRESENT: RRR, +S1, +S2 Vascular exam: PRESENT: normal capillary refill GI/Abdominal exam: PRESENT: diminished bowel sounds, soft Rectal exam: PRESENT: deferred Neurological exam: PRESENT: altered - Is confused Psychiatric exam: PRESENT: appropriate affect, normal mood Skin exam: PRESENT: dry, other Results Laboratory Results: 01/30/17 06:40 01/30/17 06:40 01/29/17 01/30/17 01/30/17 15:37 06:40 06:40 WBC 15.8 H RBC 3.35 L Hgb 11.0 L Hct 33.0 L MCV 99 H MCH 32.9 MCHC 33.4 RDW 15.6 H Plt Count 253 Seg Neutrophils % Not Reportable Lymphocytes % Not Reportable Monocytes % Not Reportable Eosinophils % Not Reportable Basophils % Not Reportable Absolute Neutrophils Not Reportable Absolute Lymphocytes Not Reportable Absolute Monocytes Not Reportable Absolute Eosinophils Not Reportable Absolute Basophils Not Reportable Sodium 142.6 Potassium 4.0 Chloride 112 H Carbon Dioxide 15 L Anion Gap 16 BUN 24 H D Creatinine 1.18 Est GFR ( Amer) > 60 Est GFR (Non-Af Amer) > 60 Glucose 99 Calcium 8.7 Total Bilirubin 0.4 AST 72 H ALT 46 Alkaline Phosphatase 102 Total Protein 5.9 L Albumin 3.1 L Urine Color YELLOW Urine Appearance SLIGHTLY-CLOUDY Urine pH 5.0 Ur Specific [place] 1.033 Urine Protein 30 H Urine Glucose (UA) NEGATIVE Urine Ketones 20 H Urine Blood MODERATE H Urine Nitrite NEGATIVE Ur Leukocyte Esterase NEGATIVE 01/30/17 08:04 WBC RBC Hgb Hct MCV MCH MCHC RDW Plt Count Seg Neutrophils % Lymphocytes % Monocytes % Eosinophils % Basophils % Absolute Neutrophils Absolute Lymphocytes Absolute Monocytes Absolute Eosinophils Absolute Basophils Sodium Potassium Chloride Carbon Dioxide Anion Gap BUN Creatinine Est GFR ( Amer) Est GFR (Non-Af Amer) Glucose Calcium Total Bilirubin AST ALT Alkaline Phosphatase Total Protein Albumin Urine Color YELLOW Urine Appearance CLEAR Urine pH 5.0 Ur Specific [place] 1.016 Urine Protein 100 H Urine Glucose (UA) NEGATIVE Urine Ketones 80 H Urine Blood LARGE H Urine Nitrite NEGATIVE Ur Leukocyte Esterase NEGATIVE 01/29/17 01/29/17 18:55 18:55 CK-MB (CK-2) 13.90 H Troponin I < 0.012 Impressions: Head CT 01/29/17 13:55 IMPRESSION: Acute on chronic sinus disease No acute intracranial changes EVIDENCE OF ACUTE STROKE: NO. Abdomen/Pelvis CT 01/29/17 14:21 IMPRESSION: Nonspecific bowel pattern with gaseous distension of colon and small bowel, question ileus Masses urinary bladder distention Large retrocardiac hiatal hernia Alveolar in its distal infiltrates worrisome for ARDS is or pulmonary edema alveolar and interstitial infiltrates worrisome for pulmonary edema KUB X-Ray 01/29/17 17:18 IMPRESSION: 1. Enteric tube tip and proximal port projecting subdiaphragmatically within the left upper quadrant. 2. Stable bowel and pulmonary findings. Chest X-Ray 01/30/17 00:00 IMPRESSION: Curled enteric tube tip at the distal esophagus; recommend adjustment/replacement. Assessment & Plan - Diagnosis (1) Aspiration pneumonia Qualifiers: Aspiration pneumonia type: due to vomit Laterality: bilateral Lung location: unspecified part of lung Qualified Code(s): J69.0 - Pneumonitis due to inhalation of food and vomit Is this a current diagnosis for this admission?: Yes Plan: Patient probably of aspiration pneumonia, the pathophysiology of this is most likely due to aspiration of GI content, he has a history of a large hiatal hernia, the CAT scan suggest dilated colon and small intestine, this is most likely due to dyskinesia of the GI tract due to chronic narcotic use, the GI structures herniated to the large hiatus with subsequent aspiration. The chest x-ray suggests pulmonary edema, the other factors suggest that this is sepsis, he has leukocytosis, fever altered mental status. He be started on Zosyn and Levaquin. Zosyn will cover potential anaerobes and gram-negative organisms, Levaquin to cover atypicals (2) Sepsis Qualifiers: Sepsis type: sepsis due to unspecified organism Qualified Code(s): A41.9 - Sepsis, unspecified organism Is this a current diagnosis for this admission?: Yes Plan: Patient's make criteria for sepsis including confusion, leukocytosis, fever with temperature 101. Sepsis is due to pneumonia, he will be treated with IV fluid at high rate for the first 24 hours,, antibiotic (3) Acute kidney injury Is this a current diagnosis for this admission?: Yes Plan: This is most likely related to sepsis (4) Colon atonic Is this a current diagnosis for this admission?: Yes Plan: This is most likely from chronic narcotic use (5) Adynamic ileus Is this a current diagnosis for this admission?: Yes Plan: He has adynamic ileus most likely from chronic narcotic use, NG tube to be inserted, he may benefit from Reglan at least transiently (6) Acute urinary retention Is this a current diagnosis for this admission?: Yes Plan: He has a small prostate gland fluid most likely this is atonic bladder probably from narcotic use
--- NOTE | 2017-01-30 11:23 | PDOC PROGRESS REPORT ---
Subjective Progress Note for:: 01/30/17 Subjective:: Patient was seen by the bedside, he was confused last night and he required restraints ,his medical condition and plan of care was explained to his . He has a dynamic ileus, atonic colon, atonic urinary bladder, he will be started on intravenous Reglan to help with GI contractility. There is no mechanical obstruction, the atonic GI tract is most likely from chronic narcotic use Reason For Visit: ASPIRATION PNEUMONIA,DIALTED COLON/JOSH COLON Physical Exam Vital Signs: Temp Pulse Resp BP Pulse Ox 98.3 F 99 20 162/93 H 90 L 01/30/17 07:30 01/30/17 07:30 01/30/17 07:30 01/30/17 07:30 01/30/17 07:30 Intake & Output 01/29/17 01/30/17 01/31/17 06:59 06:59 06:59 Intake Total 1192 Output Total 3550 Balance -2358 Weight 72.5 kg General appearance: PRESENT: no acute distress Head exam: PRESENT: atraumatic, normocephalic Eye exam: PRESENT: PERRLA Neck exam: PRESENT: full ROM Respiratory exam: PRESENT: clear to auscultation niels Cardiovascular exam: PRESENT: RRR, +S1, +S2 GI/Abdominal exam: PRESENT: soft Rectal exam: PRESENT: deferred Neurological exam: PRESENT: alert Psychiatric exam: PRESENT: appropriate affect, normal mood Skin exam: PRESENT: dry, intact, warm Results Laboratory Results: 01/30/17 06:40 01/30/17 06:40 01/29/17 01/30/17 01/30/17 15:37 06:40 06:40 WBC 15.8 H RBC 3.35 L Hgb 11.0 L Hct 33.0 L MCV 99 H MCH 32.9 MCHC 33.4 RDW 15.6 H Plt Count 253 Seg Neutrophils % Not Reportable Lymphocytes % Not Reportable Monocytes % Not Reportable Eosinophils % Not Reportable Basophils % Not Reportable Absolute Neutrophils Not Reportable Absolute Lymphocytes Not Reportable Absolute Monocytes Not Reportable Absolute Eosinophils Not Reportable Absolute Basophils Not Reportable Sodium 142.6 Potassium 4.0 Chloride 112 H Carbon Dioxide 15 L Anion Gap 16 BUN 24 H D Creatinine 1.18 Est GFR ( Amer) > 60 Est GFR (Non-Af Amer) > 60 Glucose 99 Calcium 8.7 Total Bilirubin 0.4 AST 72 H ALT 46 Alkaline Phosphatase 102 Total Protein 5.9 L Albumin 3.1 L Urine Color YELLOW Urine Appearance SLIGHTLY-CLOUDY Urine pH 5.0 Ur Specific [place] 1.033 Urine Protein 30 H Urine Glucose (UA) NEGATIVE Urine Ketones 20 H Urine Blood MODERATE H Urine Nitrite NEGATIVE Ur Leukocyte Esterase NEGATIVE 01/30/17 08:04 WBC RBC Hgb Hct MCV MCH MCHC RDW Plt Count Seg Neutrophils % Lymphocytes % Monocytes % Eosinophils % Basophils % Absolute Neutrophils Absolute Lymphocytes Absolute Monocytes Absolute Eosinophils Absolute Basophils Sodium Potassium Chloride Carbon Dioxide Anion Gap BUN Creatinine Est GFR ( Amer) Est GFR (Non-Af Amer) Glucose Calcium Total Bilirubin AST ALT Alkaline Phosphatase Total Protein Albumin Urine Color YELLOW Urine Appearance CLEAR Urine pH 5.0 Ur Specific [place] 1.016 Urine Protein 100 H Urine Glucose (UA) NEGATIVE Urine Ketones 80 H Urine Blood LARGE H Urine Nitrite NEGATIVE Ur Leukocyte Esterase NEGATIVE 01/29/17 01/29/17 18:55 18:55 CK-MB (CK-2) 13.90 H Troponin I < 0.012 Impressions: Head CT 01/29/17 13:55 IMPRESSION: Acute on chronic sinus disease No acute intracranial changes EVIDENCE OF ACUTE STROKE: NO. Abdomen/Pelvis CT 01/29/17 14:21 IMPRESSION: Nonspecific bowel pattern with gaseous distension of colon and small bowel, question ileus Masses urinary bladder distention Large retrocardiac hiatal hernia Alveolar in its distal infiltrates worrisome for ARDS is or pulmonary edema alveolar and interstitial infiltrates worrisome for pulmonary edema KUB X-Ray 01/29/17 17:18 IMPRESSION: 1. Enteric tube tip and proximal port projecting subdiaphragmatically within the left upper quadrant. 2. Stable bowel and pulmonary findings. Chest X-Ray 01/30/17 00:00 IMPRESSION: Curled enteric tube tip at the distal esophagus; recommend adjustment/replacement. Assessment & Plan - Diagnosis (1) Aspiration pneumonia Qualifiers: Aspiration pneumonia type: due to vomit Laterality: bilateral Lung location: unspecified part of lung Qualified Code(s): J69.0 - Pneumonitis due to inhalation of food and vomit Is this a current diagnosis for this admission?: Yes (2) Sepsis Qualifiers: Sepsis type: sepsis due to unspecified organism Qualified Code(s): A41.9 - Sepsis, unspecified organism Is this a current diagnosis for this admission?: Yes (3) Acute kidney injury Is this a current diagnosis for this admission?: Yes (4) Colon atonic Is this a current diagnosis for this admission?: Yes (5) Adynamic ileus Is this a current diagnosis for this admission?: Yes (6) Acute urinary retention Is this a current diagnosis for this admission?: Yes - Plan Summary Plan Summary: The resistant would be discontinued, the kidney function is normalized, he will continue IV hydration, IV Reglan is added. Once patient is stable on discharge the pain specialist we need to modify his narcotics, it seems that is on too much narcotic is on morphine and oxycodone, this combination is affecting GI tract motility
--- NOTE | 2017-01-30 12:57 | RADIOLOGY REPORT (SQ) ---
EXAM DESCRIPTION: KUB/ABDOMEN (SINGLE VIEW) COMPLETED DATE/TIME: 01/30/2017 12:48 pm REASON FOR STUDY: ileus COMPARISON: Earlier the same day. NUMBER OF VIEWS: One view. TECHNIQUE: Supine radiographic image of the abdomen acquired. LIMITATIONS: None. FINDINGS: Abundant gas within nondilated loops of primarily small bowel. Merrill catheter overlying u rinary bladder. IMPRESSION: Ileus.
--- NOTE | 2017-01-30 12:59 | RADIOLOGY REPORT (SQ) ---
EXAM DESCRIPTION: CHEST SINGLE VIEW COMPLETED DATE/TIME: 01/30/2017 12:48 pm REASON FOR STUDY: PNEUMONIA COMPARISON: 01/29/2017 NUMBER OF VIEWS: One view. TECHNIQUE: Single frontal radiographic image of the chest acquired. LIMITATIONS: None. FINDINGS: LUNGS AND PLEURA: Bilateral airspace disease with slight improved aeration in the left ama g compared to yesterday. No large effusions. MEDIASTINUM AND HEART: Stable heart size and mediastinal structures. BONY STRUCTURES: No acute findings. HARDWARE: None. OTHER: No other significant finding. IMPRESSION: Bilateral pneumonia. Slight improvement. TECHNICAL DOCUMENTATION: JOB ID: [id number]
[2017-01-30] MEDS: LORAZEPAM INJ 2 MG/1 ML VIAL IV PRN ×2 (13:30→23:00)
[2017-01-30] MEDS: METOCLOPRAMIDE HCL INJ/PF 10 MG/2 ML SDV IV SCH ×2 (13:31→23:00)
[2017-01-30 13:32] LABS: THYROID STIMULATING HORMONE 0.46 uIU/mL (0.47-4.68)
[2017-01-30 13:40] LABS: URINE CREATININE 49.3 mg/dL (22-328); URINE PROTEIN 73.3 mg/dL (<12)
--- NOTE | 2017-01-30 18:20 | PDOC PROGRESS REPORT ---
Subjective Progress Note for:: 01/30/17 Subjective:: Patient is without complaints. Has had flatus. Reason For Visit: ASPIRATION PNEUMONIA,DIALTED COLON/JOSH COLON Physical Exam Vital Signs: Temp Pulse Resp BP Pulse Ox 98.9 F 101 H 18 161/79 H 92 01/30/17 15:41 01/30/17 15:41 01/30/17 15:41 01/30/17 15:41 01/30/17 15:41 Intake & Output 01/29/17 01/30/17 01/31/17 06:59 06:59 06:59 Intake Total 1192 Output Total 3550 Balance -2358 Weight 72.5 kg GI/Abdominal exam: PRESENT: normal bowel sounds, soft. ABSENT: guarding, mass, rebound, rigid, tenderness Results Laboratory Results: 01/30/17 06:40 01/30/17 06:40 01/30/17 01/30/17 01/30/17 06:40 06:40 06:40 WBC 15.8 H RBC 3.35 L Hgb 11.0 L Hct 33.0 L MCV 99 H MCH 32.9 MCHC 33.4 RDW 15.6 H Plt Count 253 Seg Neutrophils % Not Reportable Lymphocytes % Not Reportable Monocytes % Not Reportable Eosinophils % Not Reportable Basophils % Not Reportable Absolute Neutrophils Not Reportable Absolute Lymphocytes Not Reportable Absolute Monocytes Not Reportable Absolute Eosinophils Not Reportable Absolute Basophils Not Reportable Sodium 142.6 Potassium 4.0 Chloride 112 H Carbon Dioxide 15 L Anion Gap 16 BUN 24 H D Creatinine 1.18 Est GFR ( Amer) > 60 Est GFR (Non-Af Amer) > 60 Glucose 99 Calcium 8.7 Total Bilirubin 0.4 AST 72 H ALT 46 Alkaline Phosphatase 102 Total Protein 5.9 L Albumin 3.1 L TSH 0.46 L Free T4 0.84 Urine Color Urine Appearance Urine pH Ur Specific [place] Urine Protein Urine Glucose (UA) Urine Ketones Urine Blood Urine Nitrite Ur Leukocyte Esterase 01/30/17 08:04 WBC RBC Hgb Hct MCV MCH MCHC RDW Plt Count Seg Neutrophils % Lymphocytes % Monocytes % Eosinophils % Basophils % Absolute Neutrophils Absolute Lymphocytes Absolute Monocytes Absolute Eosinophils Absolute Basophils Sodium Potassium Chloride Carbon Dioxide Anion Gap BUN Creatinine Est GFR ( Amer) Est GFR (Non-Af Amer) Glucose Calcium Total Bilirubin AST ALT Alkaline Phosphatase Total Protein Albumin TSH Free T4 Urine Color YELLOW Urine Appearance CLEAR Urine pH 5.0 Ur Specific [place] 1.016 Urine Protein 100 H Urine Glucose (UA) NEGATIVE Urine Ketones 80 H Urine Blood LARGE H Urine Nitrite NEGATIVE Ur Leukocyte Esterase NEGATIVE 01/29/17 01/29/17 18:55 18:55 CK-MB (CK-2) 13.90 H Troponin I < 0.012 Impressions: Head CT 01/29/17 13:55 IMPRESSION: Acute on chronic sinus disease No acute intracranial changes EVIDENCE OF ACUTE STROKE: NO. Abdomen/Pelvis CT 01/29/17 14:21 IMPRESSION: Nonspecific bowel pattern with gaseous distension of colon and small bowel, question ileus Masses urinary bladder distention Large retrocardiac hiatal hernia Alveolar in its distal infiltrates worrisome for ARDS is or pulmonary edema alveolar and interstitial infiltrates worrisome for pulmonary edema Chest X-Ray 01/30/17 00:00 IMPRESSION: Bilateral pneumonia. Slight improvement. KUB X-Ray 01/30/17 00:00 IMPRESSION: Ileus. Assessment & Plan - Plan Summary Plan Summary: The patient's adynamic ileus has resolved, and we will start clear liquid diet.
[2017-01-30] MEDS: LEVOFLOXACIN 500 MG/D5W RTU 500 MG/100 ML RTUPB IV SCH (23:00)
[2017-01-31] MEDS: PIPERACILLIN SODIUM/TAZOBACTAM 3.375 GM in NORMAL SALINE 100 ML IV SCH ×4 (01:27→17:03)
[2017-01-31] MEDS: LORAZEPAM INJ 2 MG/1 ML VIAL IV PRN ×2 (04:49→10:37)
[2017-01-31 05:17] LABS: HEMATOCRIT 31.7 % (37.9-51.0); HEMOGLOBIN 10.7 g/dL (13.5-17.0); HGB HCT DIFFERENCE 0.4; MEAN CORPUSCULAR HEMOGLOBIN 32.5 pg (27.0-33.4); MEAN CORPUSCULAR HGB CONC 33.6 g/dL (32.0-36.0); MEAN CORPUSCULAR VOLUME 97 fl (80-97); RED BLOOD COUNT 3.28 10^6/uL (4.35-5.55); RED CELL DISTRIBUTION WIDTH 15.1 % (11.5-14.0); WHITE BLOOD COUNT 14.5 10^3/uL (4.0-10.5)
[2017-01-31 05:39] LABS: ALANINE AMINOTRANSFERASE 41 U/L (21-72); ALBUMIN 3.1 g/dL (3.5-5.0); ALKALINE PHOSPHATASE 104 U/L (38-126); ANION GAP 14 (5-19); ASPARTATE AMINO TRANSFERASE 52 U/L (17-59); BILIRUBIN,DIRECT 0.5 mg/dL (0.0-0.4); BILIRUBIN,TOTAL 0.5 mg/dL (0.2-1.3); BLOOD UREA NITROGEN 12 mg/dL (7-20); CALCIUM 8.9 mg/dL (8.4-10.2); CARBON DIOXIDE 18 mmol/L (22-30); CHLORIDE 111 mmol/L (98-107); CREATININE RESULT 0.71 mg/dL (0.52-1.25); GLUCOSE 117 mg/dL (75-110); POTASSIUM 3.5 mmol/L (3.6-5.0); SODIUM 142.9 mmol/L (137-145); TOTAL PROTEIN 5.9 g/dL (6.3-8.2)
[2017-01-31 06:02] LABS: BASOPHILS % (MANUAL) 0 % (0-2); EOSINOPHILS % (MANUAL) 0 % (0-6)
[2017-01-31 06:04] LABS: BAND NEUTROPHILS % (MANUAL) 1 % (3-5); LYMPHOCYTES % (MANUAL) 8 % (13-45); TOTAL CELLS COUNTED 100
[2017-01-31 06:07] LABS: ANISOCYTOSIS SLIGHT; POIKILOCYTOSIS SLIGHT; TOXIC GRANULATION SLIGHT
[2017-01-31 06:08] LABS: STOMATOCYTES SLIGHT; TARGET CELLS SLIGHT
[2017-01-31] MEDS: METOCLOPRAMIDE HCL INJ/PF 10 MG/2 ML SDV IV SCH ×2 (08:39→13:16)
[2017-01-31] MEDS: HEPARIN SOD (PORCINE) 5,000 UNIT/ML 1 ML SYRINGE SUBCUT SCH ×3 (08:41→22:00)
[2017-01-31] MEDS: POTASSI CL 20 MEQ/50 ML RIDER 20 MEQ/50 ML RTUPB IV SCH ×3 (09:54→22:02)
[2017-01-31] MEDS ORDERED: LORAZEPAM INJ 2 MG/1 ML VIAL IV PRN (12:04)
[2017-01-31 16:15] LABS: ARTERIAL BLOOD BASE EXCESS -4.8 mmol/L
[2017-01-31] MEDS: NORMAL SALINE 1000 ML 1,000 ML IV PRN (17:03)
[2017-01-31] MEDS ORDERED: (PENDING PHARMACY ID) (Trazodone Hcl [Desyrel] 100 MG) PO PRN (18:21)
[2017-01-31] MEDS ORDERED: DULOXETINE HCL 20 MG CAPSULE.DR PO SCH (18:30)
[2017-01-31] MEDS ORDERED: (PENDING PHARMACY ID) (Morphine Sulfate [Morphine Sulfate Er] 30 MG) PO SCH (18:30)
[2017-01-31] MEDS ORDERED: LISINOPRIL 5 MG TABLET PO ONE (19:30)
[2017-01-31] MEDS ORDERED: AMLODIPINE BESYLATE 5 MG TABLET PO ONE (19:30)
[2017-01-31 19:34] LABS: ALANINE AMINOTRANSFERASE 45 U/L (21-72); ALBUMIN 3.2 g/dL (3.5-5.0); ALKALINE PHOSPHATASE 104 U/L (38-126); ANION GAP 15 (5-19); ASPARTATE AMINO TRANSFERASE 60 U/L (17-59); BILIRUBIN,DIRECT 0.5 mg/dL (0.0-0.4); BILIRUBIN,TOTAL 0.6 mg/dL (0.2-1.3); BLOOD UREA NITROGEN 7 mg/dL (7-20); CALCIUM 9.2 mg/dL (8.4-10.2); CARBON DIOXIDE 18 mmol/L (22-30); CHLORIDE 111 mmol/L (98-107); CREATININE RESULT 0.64 mg/dL (0.52-1.25); GLUCOSE 139 mg/dL (75-110); SODIUM 143.5 mmol/L (137-145); TOTAL PROTEIN 5.9 g/dL (6.3-8.2)
[2017-01-31] MEDS ORDERED: OXYCODONE HCL IR 5 MG TABLET ONE (19:37)
[2017-01-31 19:48] LABS: POTASSIUM 2.9 mmol/L (3.6-5.0)
[2017-01-31] MEDS ORDERED: TAMSULOSIN HCL 0.4 MG CAP.SR.24H PO ONE (20:00)
[2017-01-31] MEDS ORDERED: MORPHINE SULFATE SR 30 MG TABLET PO ONE (20:30)
--- NOTE | 2017-01-31 20:47 | PDOC PROGRESS REPORT ---
Subjective Progress Note for:: 01/31/17 Subjective:: Patient is very confused, most likely he is withdrawing from lack of narcotic, he has a history of chronic narcotic use, unfortunately the narcotic is what induce a dynamic ileus and atonic urinary bladder and colon, but he is requiring restraint, he will be restarted back on his narcotic because clearly is withdrawing from lack of narcotic use Reason For Visit: ASPIRATION PNEUMONIA,DIALTED COLON/JOSH COLON Physical Exam Vital Signs: Temp Pulse Resp BP Pulse Ox 98.8 F 102 H 18 178/92 H 98 01/31/17 17:24 01/31/17 17:24 01/31/17 17:24 01/31/17 17:24 01/31/17 17:24 Intake & Output 01/30/17 01/31/17 02/01/17 06:59 06:59 06:59 Intake Total 1192 2443 1794 Output Total 3550 2275 1325 Balance -2358 168 469 Weight 72.5 kg 71.5 kg 71.5 kg General appearance: PRESENT: disheveled Head exam: PRESENT: atraumatic, normocephalic Eye exam: PRESENT: PERRLA. ABSENT: scleral icterus Neck exam: PRESENT: full ROM Respiratory exam: PRESENT: clear to auscultation niels Cardiovascular exam: PRESENT: RRR, +S1, +S2 GI/Abdominal exam: PRESENT: soft Rectal exam: PRESENT: deferred Neurological exam: PRESENT: alert. ABSENT: motor sensory deficit Psychiatric exam: ABSENT: homicidal ideation, suicidal ideation Skin exam: ABSENT: cyanosis, rash Results Laboratory Results: 01/31/17 05:02 01/31/17 19:03 01/31/17 01/31/17 01/31/17 05:02 05:02 16:06 WBC 14.5 H RBC 3.28 L Hgb 10.7 L Hct 31.7 L MCV 97 MCH 32.5 MCHC 33.6 RDW 15.1 H Plt Count 253 Seg Neutrophils % Not Reportable Lymphocytes % Not Reportable Monocytes % Not Reportable Eosinophils % Not Reportable Basophils % Not Reportable Absolute Neutrophils Not Reportable Absolute Lymphocytes Not Reportable Absolute Monocytes Not Reportable Absolute Eosinophils Not Reportable Absolute Basophils Not Reportable Carbonic Acid 0.61 L HCO3/H2CO3 Ratio 26:1 ABG pH 7.52 H ABG pCO2 20.4 L* ABG pO2 70.4 L ABG HCO3 16.2 L ABG O2 Saturation 96.0 ABG Base Excess -4.8 FiO2 ROOM AIR Sodium 142.9 Potassium 3.5 L Chloride 111 H Carbon Dioxide 18 L Anion Gap 14 BUN 12 Creatinine 0.71 Est GFR ( Amer) > 60 Est GFR (Non-Af Amer) > 60 Glucose 117 H Calcium 8.9 Total Bilirubin 0.5 AST 52 ALT 41 Alkaline Phosphatase 104 Total Protein 5.9 L Albumin 3.1 L 01/31/17 01/31/17 18:15 19:03 WBC RBC Hgb Hct MCV MCH MCHC RDW Plt Count Seg Neutrophils % Lymphocytes % Monocytes % Eosinophils % Basophils % Absolute Neutrophils Absolute Lymphocytes Absolute Monocytes Absolute Eosinophils Absolute Basophils Carbonic Acid HCO3/H2CO3 Ratio ABG pH ABG pCO2 ABG pO2 ABG HCO3 ABG O2 Saturation ABG Base Excess FiO2 Sodium Cancelled 143.5 Potassium Cancelled 2.9 L* Chloride Cancelled 111 H Carbon Dioxide Cancelled 18 L Anion Gap Cancelled 15 BUN Cancelled 7 Creatinine Cancelled 0.64 Est GFR ( Amer) Cancelled > 60 Est GFR (Non-Af Amer) Cancelled > 60 Glucose Cancelled 139 H Calcium Cancelled 9.2 Total Bilirubin Cancelled 0.6 AST Cancelled 60 H ALT Cancelled 45 Alkaline Phosphatase Cancelled 104 Total Protein Cancelled 5.9 L Albumin Cancelled 3.2 L 01/29/17 15:37 Catheterized Urine Urine Culture - Final NO GROWTH 2 DAYS 01/29/17 01/29/17 18:55 18:55 CK-MB (CK-2) 13.90 H Troponin I < 0.012 Impressions: Head CT 01/29/17 13:55 IMPRESSION: Acute on chronic sinus disease No acute intracranial changes EVIDENCE OF ACUTE STROKE: NO. Abdomen/Pelvis CT 01/29/17 14:21 IMPRESSION: Nonspecific bowel pattern with gaseous distension of colon and small bowel, question ileus Masses urinary bladder distention Large retrocardiac hiatal hernia Alveolar in its distal infiltrates worrisome for ARDS is or pulmonary edema alveolar and interstitial infiltrates worrisome for pulmonary edema Chest X-Ray 01/30/17 00:00 IMPRESSION: Bilateral pneumonia. Slight improvement. KUB X-Ray 01/30/17 00:00 IMPRESSION: Ileus. Assessment & Plan - Diagnosis (1) Aspiration pneumonia Qualifiers: Aspiration pneumonia type: due to vomit Laterality: bilateral Lung location: unspecified part of lung Qualified Code(s): J69.0 - Pneumonitis due to inhalation of food and vomit Is this a current diagnosis for this admission?: Yes (2) Sepsis Qualifiers: Sepsis type: sepsis due to unspecified organism Qualified Code(s): A41.9 - Sepsis, unspecified organism Is this a current diagnosis for this admission?: Yes (3) Acute kidney injury Is this a current diagnosis for this admission?: Yes (4) Colon atonic Is this a current diagnosis for this admission?: Yes (5) Adynamic ileus Is this a current diagnosis for this admission?: Yes (6) Acute urinary retention Is this a current diagnosis for this admission?: Yes (7) Narcotic withdrawal Is this a current diagnosis for this admission?: Yes Plan: Patient is started back on his regular regimen of narcotics
[2017-01-31] MEDS: DULOXETINE HCL 30 MG CAPSULE.DR PO SCH (21:53)
[2017-01-31] MEDS: GABAPENTIN 300 MG CAPSULE PO SCH (21:54)
[2017-01-31] MEDS: TRAZODONE HCL 50 MG TABLET PO PRN (21:56)
[2017-01-31] MEDS ORDERED: MORPHINE SULFATE SR 30 MG TABLET PO SCH (22:00)
[2017-01-31] MEDS: OXYCODONE HCL IR 5 MG TABLET PO SCH (22:12)
[2017-02-01] MEDS: POTASSI CL 20 MEQ/50 ML RIDER 20 MEQ/50 ML RTUPB IV SCH (00:53)
[2017-02-01] MEDS: LEVOFLOXACIN 500 MG/D5W RTU 500 MG/100 ML RTUPB IV SCH ×2 (02:33→21:16)
[2017-02-01] MEDS: NORMAL SALINE 1000 ML 1,000 ML IV PRN (02:35)
[2017-02-01] MEDS: OXYCODONE HCL IR 5 MG TABLET PO SCH ×6 (02:43→21:16)
[2017-02-01] MEDS: PIPERACILLIN SODIUM/TAZOBACTAM 3.375 GM in NORMAL SALINE 100 ML IV SCH ×4 (02:44→17:56)
[2017-02-01 05:46] LABS: ABSOLUTE BASOPHILS # (AUTO) 0.1 10^3/uL (0.0-0.2); ABSOLUTE EOSINOPHILS # (AUTO) 0.3 10^3/uL (0.0-0.6); ABSOLUTE LYMPHOCYTES (AUTO) 0.8 10^3/uL (0.5-4.7); ABSOLUTE NEUT (AUTO) 9.4 10^3/uL (1.7-8.2); BASOPHILS % (AUTO) 0.6 % (0-2); EOSINOPHILS % (AUTO) 2.8 % (0-6); HEMATOCRIT 30.9 % (37.9-51.0); HEMOGLOBIN 10.5 g/dL (13.5-17.0); HGB HCT DIFFERENCE 0.6; LYMPHOCYTES % (AUTO) 7.2 % (13-45); MEAN CORPUSCULAR HEMOGLOBIN 32.8 pg (27.0-33.4); MEAN CORPUSCULAR VOLUME 96 fl (80-97); MONOCYTES % (AUTO) 8.7 % (3-13); RED BLOOD COUNT 3.21 10^6/uL (4.35-5.55); RED CELL DISTRIBUTION WIDTH 15.2 % (11.5-14.0); SEGMENTED NEUTROPHILS % (AUTO) 80.7 % (42-78); WHITE BLOOD COUNT 11.6 10^3/uL (4.0-10.5)
[2017-02-01 05:55] LABS: ALANINE AMINOTRANSFERASE 38 U/L (21-72); ALBUMIN 2.7 g/dL (3.5-5.0); ALKALINE PHOSPHATASE 76 U/L (38-126); ANION GAP 10 (5-19); ASPARTATE AMINO TRANSFERASE 43 U/L (17-59); BILIRUBIN,DIRECT 0.5 mg/dL (0.0-0.4); BILIRUBIN,TOTAL 0.5 mg/dL (0.2-1.3); BLOOD UREA NITROGEN 7 mg/dL (7-20); CALCIUM 8.6 mg/dL (8.4-10.2); CARBON DIOXIDE 21 mmol/L (22-30); CHLORIDE 112 mmol/L (98-107); CREATININE RESULT 0.64 mg/dL (0.52-1.25); GLUCOSE 106 mg/dL (75-110); POTASSIUM 3.4 mmol/L (3.6-5.0); SODIUM 142.9 mmol/L (137-145); TOTAL PROTEIN 5.1 g/dL (6.3-8.2)
[2017-02-01] MEDS: GABAPENTIN 300 MG CAPSULE PO SCH ×3 (06:10→21:16)
[2017-02-01] MEDS: MORPHINE SULFATE SR 30 MG TABLET PO SCH ×3 (06:10→21:16)
[2017-02-01] MEDS: HEPARIN SOD (PORCINE) 5,000 UNIT/ML 1 ML SYRINGE SUBCUT SCH ×3 (06:10→21:14)
[2017-02-01] MEDS: DULOXETINE HCL 30 MG CAPSULE.DR PO SCH ×2 (09:47→21:16)
[2017-02-01] MEDS: LISINOPRIL 5 MG TABLET PO SCH (09:48)
[2017-02-01] MEDS: AMLODIPINE BESYLATE 5 MG TABLET PO SCH (09:50)
[2017-02-01] MEDS: ONDANSETRON HCL INJ/PF 4 MG/2 ML SDV IV PRN ×2 (16:29→21:15)
[2017-02-01] MEDS: TAMSULOSIN HCL 0.4 MG CAP.SR.24H PO SCH (17:54)
[2017-02-01] MEDS: TRAZODONE HCL 50 MG TABLET PO PRN (21:16)
--- NOTE | 2017-02-01 21:42 | PDOC PROGRESS REPORT ---
Subjective Progress Note for:: 02/01/17 Subjective:: Patient was seen by the bedside, he is more alert oriented since he was started on his regular opioid medication, he has regained full alertness more responsive and more engaging. Reason For Visit: ASPIRATION PNEUMONIA,DIALTED COLON/JOSH COLON Physical Exam Vital Signs: Temp Pulse Resp BP Pulse Ox 98.1 F 83 18 143/69 H 96 02/01/17 19:27 02/01/17 19:27 02/01/17 19:27 02/01/17 19:27 02/01/17 19:27 Intake & Output 01/31/17 02/01/17 02/02/17 06:59 06:59 06:59 Intake Total 2443 3924 1905 Output Total 2275 3225 350 Balance 298 261 8482 Weight 71.5 kg 67.9 kg General appearance: PRESENT: no acute distress, well-developed, well-nourished Head exam: PRESENT: atraumatic, normocephalic Eye exam: PRESENT: conjunctiva pink, EOMI, PERRLA Ear exam: PRESENT: normal external ear exam Mouth exam: PRESENT: moist, tongue midline Neck exam: PRESENT: full ROM Respiratory exam: PRESENT: rales Cardiovascular exam: PRESENT: RRR, +S1, +S2 Pulses: PRESENT: normal dorsalis pedis pul, +2 pedal pulses bilateral Vascular exam: PRESENT: normal capillary refill GI/Abdominal exam: PRESENT: normal bowel sounds, soft Rectal exam: PRESENT: deferred Neurological exam: PRESENT: alert, awake, oriented to person, oriented to place , oriented to time, oriented to situation, CN II-XII grossly intact. ABSENT: motor sensory deficit Psychiatric exam: PRESENT: appropriate affect, normal mood. ABSENT: homicidal ideation, suicidal ideation Skin exam: PRESENT: dry, intact, warm. ABSENT: cyanosis, rash Results Laboratory Results: 02/01/17 04:47 02/01/17 04:47 02/01/17 02/01/17 04:47 04:47 WBC 11.6 H RBC 3.21 L Hgb 10.5 L Hct 30.9 L MCV 96 MCH 32.8 MCHC 34.0 RDW 15.2 H Plt Count 224 Seg Neutrophils % 80.7 H Lymphocytes % 7.2 L Monocytes % 8.7 Eosinophils % 2.8 Basophils % 0.6 Absolute Neutrophils 9.4 H Absolute Lymphocytes 0.8 Absolute Monocytes 1.0 Absolute Eosinophils 0.3 Absolute Basophils 0.1 Sodium 142.9 Potassium 3.4 L Chloride 112 H Carbon Dioxide 21 L Anion Gap 10 BUN 7 Creatinine 0.64 Est GFR ( Amer) > 60 Est GFR (Non-Af Amer) > 60 Glucose 106 Calcium 8.6 Total Bilirubin 0.5 AST 43 ALT 38 Alkaline Phosphatase 76 Total Protein 5.1 L Albumin 2.7 L 01/29/17 01/29/17 18:55 18:55 CK-MB (CK-2) 13.90 H Troponin I < 0.012 Impressions: Head CT 01/29/17 13:55 IMPRESSION: Acute on chronic sinus disease No acute intracranial changes EVIDENCE OF ACUTE STROKE: NO. Abdomen/Pelvis CT 01/29/17 14:21 IMPRESSION: Nonspecific bowel pattern with gaseous distension of colon and small bowel, question ileus Masses urinary bladder distention Large retrocardiac hiatal hernia Alveolar in its distal infiltrates worrisome for ARDS is or pulmonary edema alveolar and interstitial infiltrates worrisome for pulmonary edema Chest X-Ray 01/30/17 00:00 IMPRESSION: Bilateral pneumonia. Slight improvement. KUB X-Ray 01/30/17 00:00 IMPRESSION: Ileus. Assessment & Plan - Diagnosis (1) Aspiration pneumonia Qualifiers: Aspiration pneumonia type: due to vomit Laterality: bilateral Lung location: unspecified part of lung Qualified Code(s): J69.0 - Pneumonitis due to inhalation of food and vomit Is this a current diagnosis for this admission?: Yes (2) Sepsis Qualifiers: Sepsis type: sepsis due to unspecified organism Qualified Code(s): A41.9 - Sepsis, unspecified organism Is this a current diagnosis for this admission?: Yes (3) Acute kidney injury Is this a current diagnosis for this admission?: Yes (4) Colon atonic Is this a current diagnosis for this admission?: Yes (5) Adynamic ileus Is this a current diagnosis for this admission?: Yes (6) Acute urinary retention Is this a current diagnosis for this admission?: Yes (7) Narcotic withdrawal Is this a current diagnosis for this admission?: Yes - Plan Summary Plan Summary: He has aspiration pneumonia, presently on IV antibiotic Zosyn and Levaquin patient is wanting to go home because he feels better but it is not okay for him to be discharged so quickly he will need 2 more days for more stabilization to prevent readmission to the hospital. He was treated with low-dose Reglan yesterday this was discontinued today he may be restarted again on the reglan
[2017-02-02] MEDS: PIPERACILLIN SODIUM/TAZOBACTAM 3.375 GM in NORMAL SALINE 100 ML IV SCH ×4 (00:08→18:12)
[2017-02-02] MEDS: NORMAL SALINE 1000 ML 1,000 ML IV PRN (00:58)
[2017-02-02] MEDS: OXYCODONE HCL IR 5 MG TABLET PO SCH ×6 (01:02→21:25)
--- NOTE | 2017-02-02 02:55 | RADIOLOGY REPORT (SQ) ---
EXAM DESCRIPTION: CHEST PA/LAT CLINICAL HISTORY: 71 years, Male, pneumonia COMPARISON: None. NUMBER OF VIEWS: 1 TECHNIQUE: PA and lateral. LIMITATIONS: None. FINDINGS: Moderate mixed airspace and interstitial opacity. Moderate lung volume. Normal cardiac silhouette size. Mild dextroconvexity of the thoracic spine. IMPRESSION: Moderate mixed airspace and interstitial opacity. Interval worsening. 2010 [employer]- All Rights Reserved
--- NOTE | 2017-02-02 02:57 | RADIOLOGY REPORT (SQ) ---
EXAM DESCRIPTION: KUB/ABDOMEN (SINGLE VIEW) CLINICAL HISTORY: 71 years, Male, ileus COMPARISON: 01/30/2017. NUMBER OF VIEWS: 1. Two images. TECHNIQUE: AP. LIMITATIONS: None. FINDINGS: Moderate gaseous distention of the right and transverse colon. Otherwise, paucity of bowel gas. No free air. No suspicious calcification or mass. Moderate lower lumbar disc desiccation and spondylosis. Urinary bladder catheter. IMPRESSION: No acute findings. 2010 [employer]- All Rights Reserved
[2017-02-02] MEDS: GABAPENTIN 300 MG CAPSULE PO SCH ×3 (05:44→21:27)
[2017-02-02] MEDS: ONDANSETRON HCL INJ/PF 4 MG/2 ML SDV IV PRN ×3 (05:44→21:37)
[2017-02-02] MEDS: HEPARIN SOD (PORCINE) 5,000 UNIT/ML 1 ML SYRINGE SUBCUT SCH ×3 (05:44→21:28)
[2017-02-02] MEDS: MORPHINE SULFATE SR 30 MG TABLET PO SCH ×3 (05:44→21:26)
[2017-02-02] MEDS: AMLODIPINE BESYLATE 5 MG TABLET PO SCH (10:11)
[2017-02-02] MEDS: LISINOPRIL 5 MG TABLET PO SCH (10:12)
[2017-02-02] MEDS: DULOXETINE HCL 30 MG CAPSULE.DR PO SCH ×2 (10:12→21:27)
[2017-02-02 14:27] LABS: ABSOLUTE BASOPHILS # (AUTO) 0.1 10^3/uL (0.0-0.2); ABSOLUTE LYMPHOCYTES (AUTO) 1.2 10^3/uL (0.5-4.7); ABSOLUTE MONOCYTES (AUTO) 0.8 10^3/uL (0.1-1.4); ABSOLUTE NEUT (AUTO) 5.3 10^3/uL (1.7-8.2); EOSINOPHILS % (AUTO) 11.4 % (0-6); HEMATOCRIT 30.3 % (37.9-51.0); HEMOGLOBIN 10.5 g/dL (13.5-17.0); HGB HCT DIFFERENCE 1.2; LYMPHOCYTES % (AUTO) 14.1 % (13-45); MEAN CORPUSCULAR HGB CONC 34.8 g/dL (32.0-36.0); MEAN CORPUSCULAR VOLUME 95 fl (80-97); MONOCYTES % (AUTO) 9.6 % (3-13); RED BLOOD COUNT 3.19 10^6/uL (4.35-5.55); RED CELL DISTRIBUTION WIDTH 15.4 % (11.5-14.0); SEGMENTED NEUTROPHILS % (AUTO) 63.9 % (42-78); WHITE BLOOD COUNT 8.3 10^3/uL (4.0-10.5)
[2017-02-02 14:48] LABS: ALANINE AMINOTRANSFERASE 53 U/L (21-72); ALBUMIN 2.6 g/dL (3.5-5.0); ALKALINE PHOSPHATASE 82 U/L (38-126); ANION GAP 10 (5-19); ASPARTATE AMINO TRANSFERASE 49 U/L (17-59); BILIRUBIN,DIRECT 0.4 mg/dL (0.0-0.4); BILIRUBIN,TOTAL 0.4 mg/dL (0.2-1.3); BLOOD UREA NITROGEN 9 mg/dL (7-20); CALCIUM 8.4 mg/dL (8.4-10.2); CARBON DIOXIDE 22 mmol/L (22-30); CHLORIDE 109 mmol/L (98-107); CREATININE RESULT 0.72 mg/dL (0.52-1.25); GLUCOSE 83 mg/dL (75-110); POTASSIUM 3.2 mmol/L (3.6-5.0); SODIUM 141.3 mmol/L (137-145); TOTAL PROTEIN 5.2 g/dL (6.3-8.2)
--- NOTE | 2017-02-02 17:45 | PDOC PROGRESS REPORT ---
Subjective Progress Note for:: 02/02/17 Subjective:: Patient was seen by the bedside, the chest x-ray was done showed interval worsening, this is most likely from IV fluid, a 2D echo was done, it showed preserved ejection fraction of left ventricle. IV fluid be discontinued Reason For Visit: ASPIRATION PNEUMONIA,DIALTED COLON/JOSH COLON Physical Exam Vital Signs: Temp Pulse Resp BP Pulse Ox 99.0 F 85 18 160/83 H 99 02/02/17 15:26 02/02/17 15:26 02/02/17 15:26 02/02/17 15:26 02/02/17 15:26 Intake & Output 02/01/17 02/02/17 02/03/17 06:59 06:59 06:59 Intake Total 3924 2905 250 Output Total 3225 900 Balance 699 2005 250 Weight 67.9 kg 67.1 kg General appearance: PRESENT: mild distress Head exam: PRESENT: atraumatic, normocephalic Ear exam: PRESENT: normal external ear exam Mouth exam: PRESENT: moist, tongue midline Neck exam: PRESENT: full ROM Respiratory exam: PRESENT: crackles Cardiovascular exam: PRESENT: +S1, +S2 Pulses: PRESENT: normal dorsalis pedis pul, +2 pedal pulses bilateral Vascular exam: PRESENT: normal capillary refill GI/Abdominal exam: PRESENT: normal bowel sounds, soft Rectal exam: PRESENT: deferred Neurological exam: PRESENT: alert, awake, oriented to person, oriented to place , oriented to time, oriented to situation, CN II-XII grossly intact Psychiatric exam: PRESENT: appropriate affect, normal mood Skin exam: PRESENT: dry, intact, warm Results Laboratory Results: 02/02/17 13:50 02/02/17 13:50 02/02/17 02/02/17 13:50 13:50 WBC 8.3 RBC 3.19 L Hgb 10.5 L Hct 30.3 L MCV 95 MCH 33.0 MCHC 34.8 RDW 15.4 H Plt Count 268 Seg Neutrophils % 63.9 Lymphocytes % 14.1 Monocytes % 9.6 Eosinophils % 11.4 H Basophils % 1.0 Absolute Neutrophils 5.3 Absolute Lymphocytes 1.2 Absolute Monocytes 0.8 Absolute Eosinophils 1.0 H Absolute Basophils 0.1 Sodium 141.3 Potassium 3.2 L Chloride 109 H Carbon Dioxide 22 Anion Gap 10 BUN 9 Creatinine 0.72 Est GFR ( Amer) > 60 Est GFR (Non-Af Amer) > 60 Glucose 83 Calcium 8.4 Total Bilirubin 0.4 AST 49 ALT 53 Alkaline Phosphatase 82 Total Protein 5.2 L Albumin 2.6 L 01/29/17 01/29/17 18:55 18:55 CK-MB (CK-2) 13.90 H Troponin I < 0.012 Impressions: Head CT 01/29/17 13:55 IMPRESSION: Acute on chronic sinus disease No acute intracranial changes EVIDENCE OF ACUTE STROKE: NO. Abdomen/Pelvis CT 01/29/17 14:21 IMPRESSION: Nonspecific bowel pattern with gaseous distension of colon and small bowel, question ileus Masses urinary bladder distention Large retrocardiac hiatal hernia Alveolar in its distal infiltrates worrisome for ARDS is or pulmonary edema alveolar and interstitial infiltrates worrisome for pulmonary edema Chest X-Ray 02/01/17 00:00 IMPRESSION: Moderate mixed airspace and interstitial opacity. Interval worsening. 2010 [employer]- All Rights Reserved KUB X-Ray 02/01/17 00:00 IMPRESSION: No acute findings. 2010 [employer]- All Rights Reserved Assessment & Plan - Diagnosis (1) Aspiration pneumonia Qualifiers: Aspiration pneumonia type: due to vomit Laterality: bilateral Lung location: unspecified part of lung Qualified Code(s): J69.0 - Pneumonitis due to inhalation of food and vomit Is this a current diagnosis for this admission?: Yes (2) Sepsis Qualifiers: Sepsis type: sepsis due to unspecified organism Qualified Code(s): A41.9 - Sepsis, unspecified organism Is this a current diagnosis for this admission?: Yes (3) Acute kidney injury Is this a current diagnosis for this admission?: Yes (4) Colon atonic Is this a current diagnosis for this admission?: Yes (5) Adynamic ileus Is this a current diagnosis for this admission?: Yes (6) Acute urinary retention Is this a current diagnosis for this admission?: Yes (7) Narcotic withdrawal Is this a current diagnosis for this admission?: Yes (8) Hypokalemia Is this a current diagnosis for this admission?: Yes (9) Volume overload Qualifiers: Hypervolemia type: unspecified Qualified Code(s): E87.70 - Fluid overload, unspecified Is this a current diagnosis for this admission?: Yes Plan: Start IV fluid, give furosemide 40 mg IV 1 dose
[2017-02-02] MEDS: TAMSULOSIN HCL 0.4 MG CAP.SR.24H PO SCH (18:13)
[2017-02-02] MEDS ORDERED: FUROSEMIDE INJ/PF 40 MG/4 ML SDV IV ONE (18:15)
--- NOTE | 2017-02-02 18:36 | XCELERA REPORT ---
[address] [address] Transthoracic Echocardiogram Report Name: SUKUMAR ARMENDARIZ Age: 71 yrs Gender: Male : 1945 Patient Status: Inpatient Patient Location: [address] [place], [place] [address] Study Date: 02/02/2017 01:59 PM Height: 62 in Weight: 147 lb BSA: 1.7 m2 Procedure: A two-dimensional transthoracic echocardiogram with color flow Doppler was performed. The study was technically difficult with many images being suboptimal in quality. Reason For Study: CHF History: CHF. Ordering Physician: ACE YORK Performed By: Rosalina Vela Interpretation Summary The left ventricle is normal in size. There is normal left ventricular wall thickness. LV EF is 65% Left ventricular systolic function is normal. Doppler measurements suggest impaired left ventricular relaxation, which is associated with grade I/IV or mild diastolic dysfunction The left ventricular wall motion is normal. There is no thrombus. The right ventricle is grossly normal size. The right ventricle is not well visualized secondary to technical limitations The left atrial size is normal. There is no evidence of mitral valve prolapse. There is no vegetation seen on the mitral valve. There is no mitral valve stenosis. There is a mild amount of mitral regurgitation There is no aortic valve stenosis There is no LVOT obstruction. No aortic regurgitation is present. There is no tricuspid stenosis. There is a trace amount of tricuspid regurgitation Right ventricular systolic pressure is normal. RVSP is 26 mm of Hg , with RA mean of 5. There is no pericardial effusion. MMode/2D Measurements & Calculations RVDd: 3.6 cm LVIDd: 4.5 cm FS: 35.7 % Ao root diam: 2.8 cm IVSd: 1.1 cm LVIDs: 2.9 cm EDV(Teich): 91.6 ml LVPWd: 1.1 cm ESV(Teich): 31.7 ml Ao root area: 6.1 cm2 EF(Teich): 65.3 % LA dimension: 2.7 cm Doppler Measurements & Calculations MV E max elinor: MV P1/2t max elinor: Ao V2 max: LV V1 max P.6 cm/sec 68.1 cm/sec 132.7 cm/sec 3.8 mmHg MV A max elinor: MV P1/2t: 114.3 msec Ao max PG: LV V1 max: 94.8 cm/sec 7.0 mmHg 97.7 cm/sec MV E/A: 0.71 MVA(P1/2t): 1.9 cm2 MV dec slope: 174.6 cm/sec2 PA V2 max: TR max elinor: 89.3 cm/sec 225.9 cm/sec PA max PG: TR max P.4 mmHg 3.2 mmHg Left Ventricle The left ventricle is normal in size. There is normal left ventricular wall thickness. LV EF is 65%. Left ventricular systolic function is normal. Doppler measurements suggest impaired left ventricular relaxation, which is associated with grade I/IV or mild diastolic dysfunction. The left ventricular wall motion is normal. There is no thrombus. Right Ventricle The right ventricle is grossly normal size. The right ventricle is not well visualized secondary to technical limitations. Atria The right atrium is normal. The left atrial size is normal. Mitral Valve There is no evidence of mitral valve prolapse. There is no vegetation seen on the mitral valve. There is no mitral valve stenosis. There is a mild amount of mitral regurgitation. Aortic Valve There is no aortic valvular vegetation. There is no aortic valve stenosis. There is no LVOT obstruction. No aortic regurgitation is present. Tricuspid Valve There is no tricuspid stenosis. There is a trace amount of tricuspid regurgitation. Right ventricular systolic pressure is normal. RVSP is 26 mm of Hg , with RA mean of 5. Pulmonic Valve There is no pulmonic valvular stenosis. There is no pulmonic valvular regurgitation. Great Vessels The aortic root is normal size. Effusions There is no pericardial effusion. : ACE YORK > Chelle Gonzales
[2017-02-02] MEDS: POTASSI CL 20 MEQ/50 ML RIDER 20 MEQ/50 ML RTUPB IV SCH ×2 (19:56→21:30)
[2017-02-02] MEDS: TRAZODONE HCL 50 MG TABLET PO PRN (21:27)
[2017-02-02] MEDS: LEVOFLOXACIN 750 MG/D5W RTU 750 MG/150 ML RTUPB IV SCH (23:23)
[2017-02-03] MEDS: PIPERACILLIN SODIUM/TAZOBACTAM 3.375 GM in NORMAL SALINE 100 ML IV SCH ×5 (00:53→23:46)
[2017-02-03] MEDS: OXYCODONE HCL IR 5 MG TABLET PO SCH ×6 (01:00→21:54)
[2017-02-03] MEDS: LORAZEPAM INJ 2 MG/1 ML VIAL IV PRN (03:55)
[2017-02-03] MEDS: GABAPENTIN 300 MG CAPSULE PO SCH ×3 (05:13→21:53)
[2017-02-03] MEDS: MORPHINE SULFATE SR 30 MG TABLET PO SCH ×3 (05:13→21:54)
[2017-02-03] MEDS: HEPARIN SOD (PORCINE) 5,000 UNIT/ML 1 ML SYRINGE SUBCUT SCH ×3 (05:13→21:53)
[2017-02-03] MEDS: DULOXETINE HCL 30 MG CAPSULE.DR PO SCH ×2 (10:36→21:53)
[2017-02-03] MEDS: ONDANSETRON HCL INJ/PF 4 MG/2 ML SDV IV PRN ×2 (10:37→14:29)
[2017-02-03] MEDS: AMLODIPINE BESYLATE 5 MG TABLET PO SCH (10:37)
[2017-02-03] MEDS: LISINOPRIL 5 MG TABLET PO SCH (10:37)
[2017-02-03 13:46] LABS: ABSOLUTE BASOPHILS # (AUTO) 0.1 10^3/uL (0.0-0.2); ABSOLUTE EOSINOPHILS # (AUTO) 0.8 10^3/uL (0.0-0.6); ABSOLUTE LYMPHOCYTES (AUTO) 1.1 10^3/uL (0.5-4.7); ABSOLUTE MONOCYTES (AUTO) 0.6 10^3/uL (0.1-1.4); ABSOLUTE NEUT (AUTO) 4.4 10^3/uL (1.7-8.2); BASOPHILS % (AUTO) 1.3 % (0-2); EOSINOPHILS % (AUTO) 11.7 % (0-6); HEMATOCRIT 31.5 % (37.9-51.0); HGB HCT DIFFERENCE 1.5; LYMPHOCYTES % (AUTO) 15.2 % (13-45); MEAN CORPUSCULAR HEMOGLOBIN 33.3 pg (27.0-33.4); MEAN CORPUSCULAR HGB CONC 34.8 g/dL (32.0-36.0); MEAN CORPUSCULAR VOLUME 96 fl (80-97); MONOCYTES % (AUTO) 8.6 % (3-13); RED BLOOD COUNT 3.29 10^6/uL (4.35-5.55); RED CELL DISTRIBUTION WIDTH 15.5 % (11.5-14.0); SEGMENTED NEUTROPHILS % (AUTO) 63.2 % (42-78)
[2017-02-03 14:08] LABS: ALANINE AMINOTRANSFERASE 66 U/L (21-72); ALBUMIN 2.7 g/dL (3.5-5.0); ALKALINE PHOSPHATASE 98 U/L (38-126); ANION GAP 9 (5-19); ASPARTATE AMINO TRANSFERASE 57 U/L (17-59); BILIRUBIN,DIRECT 0.4 mg/dL (0.0-0.4); BILIRUBIN,TOTAL 0.4 mg/dL (0.2-1.3); BLOOD UREA NITROGEN 11 mg/dL (7-20); CALCIUM 8.6 mg/dL (8.4-10.2); CARBON DIOXIDE 25 mmol/L (22-30); CHLORIDE 105 mmol/L (98-107); CREATININE RESULT 0.76 mg/dL (0.52-1.25); GLUCOSE 126 mg/dL (75-110); POTASSIUM 3.1 mmol/L (3.6-5.0); SODIUM 139.2 mmol/L (137-145); TOTAL PROTEIN 5.5 g/dL (6.3-8.2)
[2017-02-03] MEDS: TAMSULOSIN HCL 0.4 MG CAP.SR.24H PO SCH (17:31)
[2017-02-03] MEDS: POTASSI CL 20 MEQ/50 ML RIDER 20 MEQ/50 ML RTUPB IV SCH ×3 (17:33→20:21)
--- NOTE | 2017-02-03 18:33 | PDOC PROGRESS REPORT ---
Subjective Progress Note for:: 02/03/17 Subjective:: Patient was seen by the bedside, the urinary catheter will be removed today. Patient is improved considerably when compared to admission. Reason For Visit: ASPIRATION PNEUMONIA,DIALTED COLON/JOSH COLON Physical Exam Vital Signs: Temp Pulse Resp BP Pulse Ox 98.5 F 114 H 18 169/92 H 100 02/03/17 11:36 02/03/17 14:00 02/03/17 11:36 02/03/17 11:36 02/03/17 11:36 Intake & Output 02/02/17 02/03/17 02/04/17 06:59 06:59 06:59 Intake Total 2905 1550 230 Output Total 900 2900 300 Balance 2004 Weight 67.1 kg 70.9 kg General appearance: PRESENT: no acute distress, well-developed, well-nourished Head exam: PRESENT: atraumatic, normocephalic Eye exam: PRESENT: conjunctiva pink, EOMI, PERRLA Ear exam: PRESENT: normal external ear exam Mouth exam: PRESENT: moist, tongue midline Neck exam: PRESENT: full ROM Respiratory exam: PRESENT: clear to auscultation niels Cardiovascular exam: PRESENT: RRR, +S1, +S2 Pulses: PRESENT: normal dorsalis pedis pul, +2 pedal pulses bilateral Vascular exam: PRESENT: normal capillary refill GI/Abdominal exam: PRESENT: normal bowel sounds, soft Rectal exam: PRESENT: deferred Neurological exam: PRESENT: alert, awake, oriented to person, oriented to place , oriented to time, oriented to situation, CN II-XII grossly intact Psychiatric exam: PRESENT: appropriate affect, normal mood Skin exam: PRESENT: dry, intact, warm. ABSENT: cyanosis, rash Results Laboratory Results: 02/03/17 13:19 02/03/17 13:19 02/03/17 02/03/17 13:19 13:19 WBC 7.0 RBC 3.29 L Hgb 11.0 L Hct 31.5 L MCV 96 MCH 33.3 MCHC 34.8 RDW 15.5 H Plt Count 299 Seg Neutrophils % 63.2 Lymphocytes % 15.2 Monocytes % 8.6 Eosinophils % 11.7 H Basophils % 1.3 Absolute Neutrophils 4.4 Absolute Lymphocytes 1.1 Absolute Monocytes 0.6 Absolute Eosinophils 0.8 H Absolute Basophils 0.1 Sodium 139.2 Potassium 3.1 L Chloride 105 Carbon Dioxide 25 Anion Gap 9 BUN 11 Creatinine 0.76 Est GFR ( Amer) > 60 Est GFR (Non-Af Amer) > 60 Glucose 126 H Calcium 8.6 Total Bilirubin 0.4 AST 57 ALT 66 Alkaline Phosphatase 98 Total Protein 5.5 L Albumin 2.7 L 01/29/17 16:00 Blood Blood Culture - Final NO GROWTH IN 5 DAYS 01/29/17 01/29/17 18:55 18:55 CK-MB (CK-2) 13.90 H Troponin I < 0.012 Impressions: Head CT 01/29/17 13:55 IMPRESSION: Acute on chronic sinus disease No acute intracranial changes EVIDENCE OF ACUTE STROKE: NO. Abdomen/Pelvis CT 01/29/17 14:21 IMPRESSION: Nonspecific bowel pattern with gaseous distension of colon and small bowel, question ileus Masses urinary bladder distention Large retrocardiac hiatal hernia Alveolar in its distal infiltrates worrisome for ARDS is or pulmonary edema alveolar and interstitial infiltrates worrisome for pulmonary edema Chest X-Ray 02/01/17 00:00 IMPRESSION: Moderate mixed airspace and interstitial opacity. Interval worsening. 2010 [employer]- All Rights Reserved KUB X-Ray 02/01/17 00:00 IMPRESSION: No acute findings. 2010 [employer]- All Rights Reserved Assessment & Plan - Diagnosis (1) Aspiration pneumonia Qualifiers: Aspiration pneumonia type: due to vomit Laterality: bilateral Lung location: unspecified part of lung Qualified Code(s): J69.0 - Pneumonitis due to inhalation of food and vomit Is this a current diagnosis for this admission?: Yes (2) Sepsis Qualifiers: Sepsis type: sepsis due to unspecified organism Qualified Code(s): A41.9 - Sepsis, unspecified organism Is this a current diagnosis for this admission?: Yes (3) Acute kidney injury Is this a current diagnosis for this admission?: Yes (4) Colon atonic Is this a current diagnosis for this admission?: Yes (5) Adynamic ileus Is this a current diagnosis for this admission?: Yes (6) Acute urinary retention Is this a current diagnosis for this admission?: Yes (7) Narcotic withdrawal Is this a current diagnosis for this admission?: Yes (8) Hypokalemia Is this a current diagnosis for this admission?: Yes Plan: Replace potassium (9) Volume overload Qualifiers: Hypervolemia type: unspecified Qualified Code(s): E87.70 - Fluid overload, unspecified Is this a current diagnosis for this admission?: Yes - Plan Summary Plan Summary: Patient will continue IV antibiotic and other treatment
[2017-02-03] MEDS: LEVOFLOXACIN 750 MG/D5W RTU 750 MG/150 ML RTUPB IV SCH (22:34)
[2017-02-04] MEDS: OXYCODONE HCL IR 5 MG TABLET PO SCH ×5 (02:21→17:51)
[2017-02-04 05:42] LABS: ABSOLUTE BASOPHILS # (AUTO) 0.1 10^3/uL (0.0-0.2); ABSOLUTE EOSINOPHILS # (AUTO) 0.8 10^3/uL (0.0-0.6); ABSOLUTE LYMPHOCYTES (AUTO) 1.6 10^3/uL (0.5-4.7); ABSOLUTE MONOCYTES (AUTO) 0.7 10^3/uL (0.1-1.4); BASOPHILS % (AUTO) 1.1 % (0-2); EOSINOPHILS % (AUTO) 9.7 % (0-6); HEMATOCRIT 28.9 % (37.9-51.0); HGB HCT DIFFERENCE 1.1; LYMPHOCYTES % (AUTO) 19.2 % (13-45); MEAN CORPUSCULAR HEMOGLOBIN 33.3 pg (27.0-33.4); MEAN CORPUSCULAR HGB CONC 34.7 g/dL (32.0-36.0); MEAN CORPUSCULAR VOLUME 96 fl (80-97); MONOCYTES % (AUTO) 8.9 % (3-13); RED BLOOD COUNT 3.01 10^6/uL (4.35-5.55); RED CELL DISTRIBUTION WIDTH 15.8 % (11.5-14.0); SEGMENTED NEUTROPHILS % (AUTO) 61.1 % (42-78); WHITE BLOOD COUNT 8.1 10^3/uL (4.0-10.5)
[2017-02-04 06:05] LABS: ALANINE AMINOTRANSFERASE 51 U/L (21-72); ALBUMIN 2.6 g/dL (3.5-5.0); ALKALINE PHOSPHATASE 86 U/L (38-126); ANION GAP 7 (5-19); ASPARTATE AMINO TRANSFERASE 42 U/L (17-59); BILIRUBIN,DIRECT 0.4 mg/dL (0.0-0.4); BILIRUBIN,TOTAL 0.4 mg/dL (0.2-1.3); BLOOD UREA NITROGEN 11 mg/dL (7-20); CALCIUM 8.4 mg/dL (8.4-10.2); CARBON DIOXIDE 26 mmol/L (22-30); CHLORIDE 104 mmol/L (98-107); CREATININE RESULT 0.77 mg/dL (0.52-1.25); GLUCOSE 83 mg/dL (75-110); POTASSIUM 3.9 mmol/L (3.6-5.0); SODIUM 137.3 mmol/L (137-145); TOTAL PROTEIN 5.2 g/dL (6.3-8.2)
[2017-02-04] MEDS: HEPARIN SOD (PORCINE) 5,000 UNIT/ML 1 ML SYRINGE SUBCUT SCH ×2 (06:16→13:57)
[2017-02-04] MEDS: GABAPENTIN 300 MG CAPSULE PO SCH ×2 (06:17→13:58)
[2017-02-04] MEDS: MORPHINE SULFATE SR 30 MG TABLET PO SCH ×2 (06:17→13:58)
[2017-02-04] MEDS: PIPERACILLIN SODIUM/TAZOBACTAM 3.375 GM in NORMAL SALINE 100 ML IV SCH ×3 (06:22→18:06)
[2017-02-04] MEDS: ONDANSETRON HCL INJ/PF 4 MG/2 ML SDV IV PRN (09:52)
[2017-02-04] MEDS: DULOXETINE HCL 30 MG CAPSULE.DR PO SCH (09:52)
[2017-02-04] MEDS: LISINOPRIL 5 MG TABLET PO SCH (09:52)
[2017-02-04] MEDS: AMLODIPINE BESYLATE 5 MG TABLET PO SCH (09:53)
[2017-02-04 17:43] VITALS: BP 144/90
[2017-02-04] MEDS: TAMSULOSIN HCL 0.4 MG CAP.SR.24H PO SCH (17:52)
--- NOTE | 2017-02-04 20:32 | PDOC DISCHARGE SUMMARY ---
General - Admit/Disc Date/PCP Admission Date/Primary Care Provider: 01/29/17 15:17 CESAR PAULA PA-C Discharge Date: 02/04/17 - Discharge Diagnosis (1) Aspiration pneumonia Is this a current diagnosis for this admission?: Yes (2) Sepsis Is this a current diagnosis for this admission?: Yes (3) Acute kidney injury Is this a current diagnosis for this admission?: Yes (4) Colon atonic Is this a current diagnosis for this admission?: Yes (5) Adynamic ileus Is this a current diagnosis for this admission?: Yes (6) Acute urinary retention Is this a current diagnosis for this admission?: Yes (7) Narcotic withdrawal Is this a current diagnosis for this admission?: Yes (8) Hypokalemia Is this a current diagnosis for this admission?: Yes (9) Volume overload Is this a current diagnosis for this admission?: Yes - Additional Information Resuscitation Status: Full Code Discharge Diet: Regular Discharge Activity: Activity As Tolerated Home Medications: Amlodipine Besylate [Norvasc 5 mg Tablet] 5 mg PO DAILY 01/29/17 Duloxetine HCl [Cymbalta 20 mg Capsule.dr] 60 mg PO Q12 01/29/17 Gabapentin [Neurontin 300 mg Capsule] 300 mg PO Q8 01/29/17 Lisinopril [Prinivil 5 mg Tablet] 5 mg PO DAILY 01/29/17 Morphine Sulfate [Morphine Sulfate ER] 30 mg PO Q8 01/29/17 Oxycodone HCl 20 mg PO Q4H 01/29/17 Tamsulosin HCl [Flomax 0.4 mg Cap.sr] 0.4 mg PO DAILY 01/29/17 Trazodone HCl [Desyrel] 100 mg PO QHS PRN 01/29/17 Levofloxacin [Levaquin 750 mg Tablet] 750 mg PO DAILY #5 tablet 02/04/17 Polyethylene Glycol 3350 [Miralax] 765 gm PO Q6 #120 powder 02/04/17 History of Present Illness History of Present Illness: Patient is a 71-year-old male he was brought to the emergency room by his spouse for evaluation of altered mental status, there was also associated coughing, on Arava in the emergency room the oxygen saturation was 88% on room air, he was also found to be very shaky, tremulousness. The emergency room he was evaluated a chest x-ray was done, the chest x-ray suggests a sub diaphragmatic free air suggesting perforation of a viscus also found was diffuse bilateral airspace disease worrisome for pulmonary edema. Because of these findings on chest x-ray a CAT scan of the abdomen and pelvis with IV contrast was done he showed diffuse alveolar and interstitial infiltrates no pleural effusion also found was a large retrocardiac hiatal hernia there was also diffuse gaseous distention of colon and small bowel in a nonspecific nonobstructive pattern, question ileus. Gaseous distention of the transverse colon under the hemidiaphragm could mimic the appearance of free air. The hemogram showed severe leukocytosis with white blood cell count was 17,000. The CAT scan also showed massively distended urinary bladder the prostate was small is status post TURP. There was fever with temperature of 101. Because of the findings on the CAT scan in the nasogastric tube was inserted and also a Merrill catheter was inserted. Patient also found to have acute kidney injury with serum creatinine of 3.4, BUN 47 the urinalysis was bland. Patient is well- known to me, he had blood work recently in the office on the kidney function was normal so clearly the elevated serum creatinine is acute most likely related to sepsis. Patient have history of chronic pain and is on chronic narcotic regimen with pain specialist. Hospital Course Hospital Course: Patient was admitted for the management of sepsis due to pneumonia, there was associated acute kidney injury, prerenal, he was treated empirically with IV antibiotic with broad spectrum coverage, Zosyn and Levaquin to cover potential pathogens including anaerobes and atypical organisms. On admission patient had dilated small intestine and colon that was attributed to chronic narcotic use initially the narcotic medication was held, patient developed acute narcotic withdrawal syndrome with confusion, agitation he was initially treated with lorazepam he also required restraint despite this intervention patient condition worsened and it was ultimately started back on opioid therapy and patient's symptoms improve after wards. On admission he had atony of the urinary bladder there was urinary retention on admission he required Merrill urethral catheter.The ileus was treated with prokinetic drug, Reglan with good results Physical Exam Vital Signs: Temp Pulse Resp BP Pulse Ox 97.7 F 87 16 144/90 H 95 02/04/17 17:42 02/04/17 17:42 02/04/17 17:42 02/04/17 17:42 02/04/17 17:42 Intake & Output 02/03/17 02/04/17 02/05/17 06:59 06:59 06:59 Intake Total 1550 1448 1325 Output Total 2900 650 450 Balance -1350 798 875 Weight 70.9 kg 73 kg General appearance: PRESENT: no acute distress, well-developed, well-nourished Head exam: PRESENT: atraumatic, normocephalic Eye exam: PRESENT: conjunctiva pink, EOMI, PERRLA Ear exam: PRESENT: normal external ear exam Mouth exam: PRESENT: moist, tongue midline Neck exam: PRESENT: full ROM Respiratory exam: PRESENT: clear to auscultation niels Cardiovascular exam: PRESENT: RRR, +S1, +S2 GI/Abdominal exam: PRESENT: normal bowel sounds, soft Rectal exam: PRESENT: deferred Neurological exam: PRESENT: alert, awake, oriented to person, oriented to place , oriented to time, oriented to situation, CN II-XII grossly intact Psychiatric exam: PRESENT: appropriate affect, normal mood Skin exam: PRESENT: dry, intact, warm Results Laboratory Results: 02/04/17 05:01 02/04/17 05:01 02/04/17 02/04/17 05:01 05:01 WBC 8.1 RBC 3.01 L Hgb 10.0 L Hct 28.9 L MCV 96 MCH 33.3 MCHC 34.7 RDW 15.8 H Plt Count 292 Seg Neutrophils % 61.1 Lymphocytes % 19.2 Monocytes % 8.9 Eosinophils % 9.7 H Basophils % 1.1 Absolute Neutrophils 5.0 Absolute Lymphocytes 1.6 Absolute Monocytes 0.7 Absolute Eosinophils 0.8 H Absolute Basophils 0.1 Sodium 137.3 Potassium 3.9 Chloride 104 Carbon Dioxide 26 Anion Gap 7 BUN 11 Creatinine 0.77 Est GFR ( Amer) > 60 Est GFR (Non-Af Amer) > 60 Glucose 83 Calcium 8.4 Total Bilirubin 0.4 AST 42 ALT 51 Alkaline Phosphatase 86 Total Protein 5.2 L Albumin 2.6 L 01/29/17 16:00 Blood Blood Culture - Final NO GROWTH IN 5 DAYS 01/29/17 01/29/17 18:55 18:55 CK-MB (CK-2) 13.90 H Troponin I < 0.012 Impressions: Head CT 01/29/17 13:55 IMPRESSION: Acute on chronic sinus disease No acute intracranial changes EVIDENCE OF ACUTE STROKE: NO. Abdomen/Pelvis CT 01/29/17 14:21 IMPRESSION: Nonspecific bowel pattern with gaseous distension of colon and small bowel, question ileus Masses urinary bladder distention Large retrocardiac hiatal hernia Alveolar in its distal infiltrates worrisome for ARDS is or pulmonary edema alveolar and interstitial infiltrates worrisome for pulmonary edema Chest X-Ray 02/01/17 00:00 IMPRESSION: Moderate mixed airspace and interstitial opacity. Interval worsening. 2010 [email or web address]- All Rights Reserved KUB X-Ray 02/01/17 00:00 IMPRESSION: No acute findings. 2010 [email or web address]- All Rights Reserved
[2017-02-04] MEDS ORDERED: LEVOFLOXACIN 750 MG TABLET PO SCH (22:00)
== END 2017-02-04 18:15 | disposition home or self-care (01) | DRG 871 ==
LOC: ER 13:29 → EH 15:17 → 3W 18:39
PROVIDERS: ADMIT Internal Medicine; ATTEND Internal Medicine
DX: A41.9 Sepsis, unspecified organism (principal); J69.0 Pneumonitis due to inhalation of food and vomit; N17.9 Acute kidney failure, unspecified; K56.0 Paralytic ileus; F15.93 Other stimulant use, unspecified with withdrawal; K44.9 Diaphragmatic hernia without obstruction or gangrene; E87.6 Hypokalemia; I10 Essential (primary) hypertension; J44.9 Chronic obstructive pulmonary disease, unspecified; R33.9 Retention of urine, unspecified; K59.8 Other specified functional intestinal disorders; R41.82 Altered mental status, unspecified; F17.210 Nicotine dependence, cigarettes, uncomplicated
CPT/HCPCS: 36415; 36600; 70450; 71010; 71020; 74000; 74177; 80053; 81001; 82553; 82570; 82803; 82962; 83036; 83605; 83880; 84156; 84439; 84443; 84484; 85025; 85610; 87040; 87086; 90686; 93005; 93010; 93306; 96365; 99291; J0295; J1644; J1940; J1956; J2060; J2405; J2543; J2765; J3480; J3490; J7030